=== PATIENT | female | born 1980 | race Hispanic/Latino ===

== ENCOUNTER 2018-09-19 11:54 | Emergency (ER) | payer SELFPAY ==
--- NOTE | 2018-09-19 12:48 | EKG ---
Test Date: 2018-09-19 Test Time: 12:24:50 Human Resources Department Supervisor: SHRADDHA MEASUREMENT RESULTS: Intervals: Rate: 76 [place]: 142 QRSD: 76 QT: 414 QTc: 465 [place]: P: 49 [place]: 142 QRS: 27 T: 74 INTERPRETIVE STATEMENTS: Normal sinus rhythm Normal ECG Compared to ECG 12/21/1998 21:00:00 T-wave abnormality no longer present Electronically Signed On 09-19-18 12:47:48 CDT by Jasiel Fuentes
[2018-09-19 12:55] LABS: Absolute Lymphocytes (CBC) 1.4 K/uL (0.7-4.9); Basophils % 0.5 % (0-1.3); Hematocrit 38.6 % (36.0-45.0); Lymphocytes % 25.5 % (15.3-44.8); Monocytes % 8.5 % (3.3-12.3); RBC Red Blood Cell Count 4.09 M/uL (3.86-4.86)
[2018-09-19 13:12] LABS: ALT/SGPT 15 U/L (12-78); AST/SGOT 13 U/L (15-37); Alkaline Phosphatase 48 U/L (45-117); BUN Blood Urea Nitrogen 14 mg/dL (7-18); Bicarbonate 28 mmol/L (21-32); Bilirubin Direct 0.2 mg/dL (0-0.2); Bilirubin Total 0.8 mg/dL (0.2-1.0); Glucose Level 61 mg/dL (74-106); Potassium 3.6 mmol/L (3.5-5.1); Protein, Total 7.1 g/dL (6.4-8.2); Sodium Level 145 mmol/L (136-145); Troponin (Emerg Dept Use Only) < 0.02 ng/mL (0.0-0.045)
--- NOTE | 2018-09-19 13:12 | RAD REPORT ---
EXAM DESCRIPTION: RAD - Chest Pa And Lat (2 Views) - 09/19/2018 1:05 pm CLINICAL HISTORY: Chest pain and pressure, shortness of breath COMPARISON: December 2013 TECHNIQUE: PA and lateral views of the chest were obtained. FINDINGS: The lungs are clear. Heart size is normal and central vasculature is within normal limit s. No pleural effusion or pneumothorax seen. No acute bony finding noted. No aortic abnormality. IMPRESSION: No acute cardiopulmonary process. No significant interval change.
--- NOTE | 2018-09-19 13:26 | ER ---
Nurse's Notes [facility] Name: Aura Crawford Age: 37 yrs Sex: Female : 1980 Arrival Date: 09/19/2018 Time: 11:57 Bed 14 Private MD: Diagnosis: Chest pain, unspecified Presentation: 09/19 11:59 Presenting complaint: Patient states: chest pressure and SOB that began 1 week ago. Pt aa5 states "It hasn't gotten any better or worse". Transition of care: patient was not received from another setting of care. Onset of symptoms was September 2018. Risk Assessment: Do you want to hurt yourself or someone else? Patient reports no desire to harm self or others. Initial Sepsis Screen: Does the patient meet any 2 criteria? No. Patient's initial sepsis screen is negative. Does the patient have a suspected source of infection? No. Patient's initial sepsis screen is negative. Care prior to arrival: None. 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 - Social history:: Smoking status: Patient/guardian denies using tobacco. - Ebola Screening: : No symptoms or risks identified at this time. Screenin:23 Abuse screen: Denies threats or abuse. Denies injuries from another. Nutritional aj screening: No deficits noted. Tuberculosis screening: No symptoms or risk factors identified. Fall Risk None identified. Assessment: 12:23 General: Appears in no apparent distress. comfortable, Behavior is calm, cooperative, aj appropriate for age. Pain: Complains of pain in chest Pain does not radiate. Pain began gradually. Cardiovascular: Reports chest pain, shortness of breath, Capillary refill < 3 seconds in bilateral fingers Patient's skin is warm and dry. Respiratory: Reports shortness of breath Airway is patent Respiratory effort is even, unlabored, Respiratory pattern is regular, symmetrical. Derm: Skin is intact, is healthy with good turgor, Skin is pink, warm \\T\\ dry. normal. 13:08 Reassessment: PT RETURNED FROM RADIOLOGY. bp Vital Signs: 12:00 BP 136 / 87; Pulse 82; Resp 16 S; Temp 98.1(O); Pulse Ox 100% on R/A; Weight 70.31 kg aa5 (R); Height 5 ft. 3 in. (160.02 cm) (R); Pain 4/10; 13:46 BP 138 / 78; Pulse 78; Resp 18; Pulse Ox 99% on R/A; aj 12:00 Body Mass Index 27.46 (70.31 kg, 160.02 cm) aa5 ED Course: 11:57 Patient arrived in ED. rg4 11:59 Arm band placed on. aa5 12:00 Triage completed. aa5 12:06 Urmila Feliz, RN is Primary Nurse. aj 12:10 David Gillis MD is Attending Physician. 12:23 Patient has correct armband on for positive identification. Placed in gown. Bed in low aj position. Side rails up X 1. Adult w/ patient. panel monitor on. Pulse ox on. NIBP on. 12:23 Inserted saline lock: 20 gauge in right antecubital area, using aseptic technique. aj Blood collected. Patient maintains SpO2 saturation greater than 95% on room air. 12:28 EKG done, by technical account manager. reviewed by David Gillis MD. tc 13:02 Patient moved to radiology via wheelchair. sw 13:02 X-ray completed. Patient tolerated procedure well. Patient moved back from radiology. sw 13:03 XRAY Chest Pa And Lat (2 Views) In Process Unspecified. EDMS 13:24 Carlito Dick MD is Referral Physician. gs 13:46 No provider procedures requiring assistance completed. IV discontinued, intact, aj bleeding controlled, No redness/swelling at site. Pressure dressing applied. Administered Medications: No medications were administered Outcome: 13:26 Discharge ordered by . gs 13:46 Discharged to home ambulatory. aj 13:46 Condition: good 13:46 Discharge instructions given to patient, Instructed on discharge instructions, follow up and referral plans. medication usage, Demonstrated understanding of instructions, follow-up care, medications, Prescriptions given X 1. 13:48 Patient left the ED. aj Signatures: Dispatcher [employer] EDMS Feliz Urmila, RN RN aj Clarissa Hussein, RN RN aa5 Tania Patricia, [facility] Hsu Rubi 4 David Gillis MD MD Levi Blackwood, RN RN bp
--- NOTE | 2018-09-19 13:26 | EDPHYS ---
Physician Documentation [facility] Name: Aura Crawford Age: 37 yrs Sex: Female : 1980 Arrival Date: 09/19/2018 Time: 11:57 Bed 14 Private MD: ED Physician David Gillis HPI: 09/19 18:52 This 37 yrs old Female presents to ER via Ambulatory with complaints of Chest gs Pain, Shortness Of Breath, Headache. 18:52 The patient or guardian reports chest pain that is located primarily in the anterior gs chest wall. The pain does not radiate. Associated signs and symptoms: Pertinent positives: shortness of breath, mild intermittent. The chest pain is described as dull. Duration: The patient or guardian reports a single episode, that is still ongoing, and unchanged. Modifying factors: The symptoms are alleviated by nothing. the symptoms are aggravated by nothing. Severity of pain: At its worst the pain was very mild in the emergency department the pain is unchanged. The patient has experienced similar episodes in the past, a few times. 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 - Social history:: Smoking status: Patient/guardian denies using tobacco. - Ebola Screening: : No symptoms or risks identified at this time. ROS: 18:52 All other systems are negative. gs Exam: 18:52 Head/Face: Normocephalic, atraumatic. Eyes: Pupils equal round and reactive to light, gs extra-ocular motions intact. Lids and lashes normal. Conjunctiva and sclera are non-icteric and not injected. Cornea within normal limits. Periorbital areas with no swelling, redness, or edema. ENT: Nares patent. No nasal discharge, no septal abnormalities noted. Tympanic membranes are normal and external auditory canals are clear. Oropharynx with no redness, swelling, or masses, exudates, or evidence of obstruction, uvula midline. Mucous membranes moist. Neck: Trachea midline, no thyromegaly or masses palpated, and no cervical lymphadenopathy. Supple, full range of motion without nuchal rigidity, or vertebral point tenderness. No Meningismus. Chest/axilla: Normal chest wall appearance and motion. Nontender with no deformity. No lesions are appreciated. Cardiovascular: Regular rate and rhythm with a normal S1 and S2. No gallops, murmurs, or rubs. Normal PMI, no JVD. No pulse deficits. Respiratory: Lungs have equal breath sounds bilaterally, clear to auscultation and percussion. No rales, rhonchi or wheezes noted. No increased work of breathing, no retractions or nasal flaring. Abdomen/GI: Soft, non-tender, with normal bowel sounds. No distension or tympany. No guarding or rebound. No evidence of tenderness throughout. Back: No spinal tenderness. No costovertebral tenderness. Full range of motion. Female : Normal external genitalia. Skin: Warm, dry with normal turgor. Normal color with no rashes, no lesions, and no evidence of cellulitis. MS/ Extremity: Pulses equal, no cyanosis. Neurovascular intact. Full, normal range of motion. Neuro: Awake and alert, GCS 15, oriented to person, place, time, and situation. Cranial nerves II-XII grossly intact. Motor strength 5/5 in all extremities. Sensory grossly intact. Cerebellar exam normal. Normal gait. 18:52 Constitutional: The patient appears alert, awake. 18:52 ECG was reviewed by the Attending Physician. Vital Signs: 12:00 BP 136 / 87; Pulse 82; Resp 16 S; Temp 98.1(O); Pulse Ox 100% on R/A; Weight 70.31 kg aa5 (R); Height 5 ft. 3 in. (160.02 cm) (R); Pain 4/10; 13:46 BP 138 / 78; Pulse 78; Resp 18; Pulse Ox 99% on R/A; aj 12:00 Body Mass Index 27.46 (70.31 kg, 160.02 cm) aa5 MDM: 12:40 Patient medically screened. 18:52 Differential diagnosis: coronary artery disease chest wall pain, gastroesophageal gs reflux disease (GERD), pleurisy. HEART Score: History: Slightly Suspicious (0), ECG: Non specific repolarization disturbance / LBTB / PM (1), Age: < or = 45 years (0), Risk Factors: No Risk Factors Known (0), Troponin: < or = 1 x Normal Limit (0). The patient's pulmonary embolism risk score was calculated as follows: No Risks (0 Pts). Data reviewed: vital signs, nurses notes. Counseling: I had a detailed discussion with the patient and/or guardian regarding: the historical points, exam findings, and any diagnostic results supporting the discharge/admit diagnosis, the presence of at least one elevated blood pressure reading (>120/80) during this emergency department visit, lab results, radiology results, the need for outpatient follow up. Special discussion: I have referred the patient to see his PCP for further evaluation of high blood pressure. 09/19 12:27 Order name: Urine Dipstick--Ancillary (enter results); Complete Time: 13:35 em1 09/19 12:27 Order name: Urine --Ancillary (enter results); Complete Time: 13:35 em1 09/19 12:41 Order name: Basic Metabolic Panel; Complete Time: 13:20 09/19 12:41 Order name: CBC with Diff; Complete Time: 13:20 09/19 12:41 Order name: LFT's; Complete Time: 13:20 09/19 12:41 Order name: Troponin (emerg Dept Use Only); Complete Time: 13:20 09/19 12:41 Order name: EKG; Complete Time: 12:41 09/19 12:41 Order name: Cardiac monitoring; Complete Time: 12:42 09/19 12:41 Order name: EKG - Nurse/Tech; Complete Time: 13:04 09/19 12:41 Order name: IV Saline Lock; Complete Time: 12:42 09/19 12:41 Order name: Labs collected and sent; Complete Time: 12:42 09/19 12:41 Order name: O2 Per Protocol; Complete Time: 12:42 09/19 12:41 Order name: O2 Sat Monitoring; Complete Time: 12:42 09/19 12:41 Order name: XRAY Chest Pa And Lat (2 Views); Complete Time: 13:20 gs EC:52 Rate is 76 beats/min. Rhythm is regular. NM interval is normal. QRS interval is normal. gs QT interval is normal. T waves are Flattened in leads I, aVL. Clinical impression: Abnormal EKG without significant change. Interpreted by me. Administered Medications: No medications were administered Disposition: 09/19/18 13:26 Discharged to Home. Impression: Chest pain, unspecified. - Condition is Stable. - Discharge Instructions: Nonspecific Chest Pain, Managing Your Hypertension. - Prescriptions for Pepcid 20 mg Oral Tablet - take 1 tablet by ORAL route every 12 hours for 10 days; 20 tablet. - Medication Reconciliation Form, Thank You Letter, Antibiotic Education, Prescription Opioid Use form. - Follow up: Carlito Dick MD; When: 2 - 3 days; Reason: Re-evaluation by your physician. Signatures: Dispatcher [employer] EDUrmila Hernández RN RN Clarissa Simons RN RN aa5 David Gillis MD MD gs Corrections: (The following items were deleted from the chart) 13:48 13:26 09/19/2018 13:26 Discharged to Home. Impression: Chest pain, unspecified. aj Condition is Stable. Forms are Medication Reconciliation Form, Thank You Letter, Antibiotic Education, Prescription Opioid Use. Follow up: Carlito Dick; When: 2 - 3 days; Reason: Re-evaluation by your physician. gs
[2018-09-19 13:34] LABS: Urine Blood NEGATIVE (NEG); Urine Glucose NEGATIVE (NEG); Urine Protein NEGATIVE (NEG); Urine Specific Gravity 1.025 (1.005-1.030)
[2018-09-19 14:31] VITALS: TEMP 98.1
[2018-09-19 14:32] VITALS: BP 138/78; O2SAT 99
== END 2018-09-19 13:48 | disposition home or self-care (01) ==
LOC: ER 11:54
DX: R07.9 Chest pain, unspecified (principal); R06.02 Shortness of breath
CPT/HCPCS: 36415; 71046; 80048; 80076; 81003; 81025; 84484; 85025; 93005; 99285

== ENCOUNTER 2020-05-14 06:29 | Day surgery (SDC) | payer OTHER, SELFPAY ==
[2020-05-10 14:54] LABS: Hematocrit 35.4 % (36.0-45.0); MPV 9.9 fL (7.6-11.3); RBC Red Blood Cell Count 3.89 M/uL (3.86-4.86)
[2020-05-10 14:55] LABS: Absolute Lymphocytes (CBC) 1.5 K/uL (0.7-4.9); Basophils % 0.7 % (0-1.3); Lymphocytes % 28.3 % (15.3-44.8)
[2020-05-10 15:29] LABS: Urine Appearance CLEAR; Urine Bilirubin NEGATIVE (NEG); Urine Blood NEGATIVE (NEG); Urine Color YELLOW; Urine Glucose NEGATIVE (NEG); Urine Protein NEGATIVE (NEG); Urine Specific Gravity 1.015 (1.005-1.030); Urine Urobilinogen 0.2 mg/dL (0.2-1.0); Urine pH 6.5 (5.0-7.0)
[2020-05-10 15:32] LABS: Urine Microscopic Reflex NO UMIC
[2020-05-14 06:52] LABS: Specific Gravity 1.025 (1.005-1.030)
[2020-05-14] MEDS ORDERED: BUPIVACAINE 0.25% PF 30 ML VIAL ONE (07:07)
[2020-05-14] MEDS ORDERED: SCOPOLAMINE HYDROBROMIDE PATCH TD ONE (07:22)
[2020-05-14] MEDS ORDERED: Ringers Lactate 1,000 ML IV ONE ×2 (07:23→08:43)
[2020-05-14] MEDS ORDERED: CEFAZOLIN SODIUM 1 GM/VIAL ONE (07:23)
[2020-05-14] MEDS ORDERED: METRONIDAZOLE 500mg IVPB 500 MG/100 ML BAG IV ONE (07:23)
[2020-05-14] MEDS ORDERED: propofoL 200 MG/20 ML VIAL IV ONE (07:25)
[2020-05-14] MEDS ORDERED: dexAMETHasone 10 MG/ML VIAL ONE (07:25)
[2020-05-14] MEDS ORDERED: MIDAZOLAM HCL 2 MG/2 ML INJ ONE (07:25)
[2020-05-14] MEDS ORDERED: FENTANYL CITR 250 MCG/5 ML ONE ×2 (07:26→10:00)
[2020-05-14] MEDS ORDERED: LIDOCAINE 1% MPF 2 ML AMPULE ONE (07:28)
[2020-05-14] MEDS ORDERED: ROCURONIUM 50 MG/5 ML VIAL IV ONE (07:28)
[2020-05-14] MEDS ORDERED: ONDANSETRON 4 MG/2 ML VIAL ONE ×2 (07:28→11:05)
[2020-05-14] MEDS ORDERED: GLYCOPYRROLATE 0.2 MG/ML SYR ONE (07:33)
[2020-05-14] MEDS ORDERED: Levofloxacin 750mg IV 750 MG/150 ML BAG IV ONE (07:49)
[2020-05-14] MEDS ORDERED: KETOROLAC 30 MG/ML INJ ONE (10:45)
[2020-05-14] MEDS ORDERED: PROMETHAZINE INJ 25 MG/ML AMP ONE (11:05)
--- NOTE | 2020-05-14 11:40 | OP ---
Surgeon: Tyler Amador MD Intraoperative consultation and procedure note. Dr. Lei was doing a diagnostic laparoscopy and removal of a cyst possible salpingo-oophorectomy on the patient with a pelvic mass. She had encounter a lot of scar tissue upon entering the abdomen and I was consulted. Two 5 mm trocars were placed after the initial 12 mm trocar was placed in the s upraumbilical region on the left side. One 5 mm trocar was placed on the right side. The ligature w as utilized to lyse all the adhesions in the peritoneal cavity. Bleeding was controlled with cautery as well as vascular clips on the mesenteric blood vessels. Care was taken to avoid injury to the sm all bowel or any bowel that was seen until all of the adhesions were taken down. The pelvis was visu alized, at which point Dr. Lei proceeded to evaluate the cyst and the ovary in the pelvis and pr oceeded with the appropriate surgical intervention for that purpose. My part was just lysing the adh esions and exposing the pelvis. So she was able to accomplish what she is doing in the pelvis, at wh ich point I left, and she completed the surgery. The patient was in stable condition at the time. /MODL Voice ID: [id number] Report ID: [id number]
[2020-05-14] MEDS: HYDROMORPHONE HCL 1 MG/ML INJ ONE ×2 (11:44→11:50)
[2020-05-14] MEDS: HYDROMORPHONE HCL 2 MG/ML inj ONE ×4 (11:56→12:15)
[2020-05-14] MEDS ORDERED: MEPERIDINE HCL 25 MG/ML SYR ONE (12:41)
[2020-05-14 12:54] VITALS: TEMP 97.3
[2020-05-14] MEDS ORDERED: IBUPROFEN 200 MG TAB PO ONE (12:55)
[2020-05-14 13:57] VITALS: BP 122/82; O2SAT 100
--- NOTE | 2020-06-22 23:17 | OP ---
Date of Procedure: 05/14/2020 Surgeon: Cindy Lei MD Medical Clerical Assistant: Dr. Amador or co-surgeon. Then, Melyssa Santillan was my electrician's assistant for my surgery. Preoperative Diagnoses: 1.Pelvic pain. 2.Right lower quadrant pain. 3.Intraabdominal pelvic mass. 4.Chronic parametritis and/or salpingitis. Postoperative Diagnoses: 1.Pelvic pain. 2.Left lower quadrant pain. 3.Left paraovarian cyst. 4.Right hydrosalpinx. 5.Bilateral ovarian adhesions and right tubal adhesions. 6.Extensive adhesions of the omentum and small bowel. Procedures Performed: 1.Laparoscopy with extensive lysis of adhesions, Dr. Amador. Please refer to his operative note. Th en, laparoscopy with bilateral ovariolysis. 2.Left paraovarian cystectomy. 3.Partial right salpingectomy. Specimens: Right tubal segment, left paraovarian cyst. Complications: None. Drains: None. Condition: Stable. Findings: The patient is COVID positive and she was given all the counseling as she was previously t ested and had recovered from COVID. She was still continuing to be positive. As this procedure was urgent, proceeded with this surgery. All COVID precautions universally were taken for the entire preoperative, postoperative, and intraope rative time for this patient. Indications: The patient is a 39-year-old with significant gynecological history. She had an ectopi c on the right ovary and the ectopic was removed and ovary reconstructed in 2003. Then, daniel patterson had a laparoscopy, left salpingectomy for left tubal ectopic in December of 2013. Then, s he had a laparotomy for severe peritonitis and sepsis from likely a pelvic infection in March, so anticipated significant amount of adhesions for this patient and when she presented with recen t onset pelvic pain to the clinically examination consistent with pelvic inflammatory disease, which probably includes the endometritis, salpingitis. There is a serious concern for this patient having significant peritoneal inflammation and sepsis just as she did in the past, so she was started on IV antibiotics. She had large masses on the left and right adnexa, one was 11.2 cm and the other was 5. 2 cm. The left one appeared to be thin-walled and tubal in origin and there were another 3.5 and 3 c m right adnexal masses that appeared to be simple cysts. So, a CT scan was ordered for this patient and CA-125. This appeared to be definitely more recent in onset in terms of her pain. All her opera tive notes from the past were all reviewed carefully. General surgery was on standby for this proced ure as there were anticipated adhesions that would be encountered and for the safety of the procedure , Dr. Amador was consulted. She was on Levaquin and Flagyl and was continuing this. Her pain had imp roved to a good extent, however, her masses were unresolved and so proceeded with the procedure. After informed consent was verified and she was given, she was already on her antibiotic. She was ta margaret back to the OR, consented for left ovarian cystectomy or left oophorectomy, right salpingectomy a nd cystectomy, lysis of adhesions. Description Of Procedure: After informed consent was re-verified, she was taken back to OR, placed i n a supine fashion on the operating table. General anesthesia was given. Abdomen, vulva, vagina, an d perineum prepped and draped in a sterile fashion. Gatica was placed to drain the bladder and diagno stic VCare introduced into the uterus and fixed in place. A 1 cm supraumbilical incision was made with a scalpel using the open laparoscopy technique. Fascia was incised, tagged with 0 Vicryl sutures. Peritoneal cavity entered bluntly. Once the S retractors were placed and Migel introduced, gas was insufflated appropriately. Once the 10 mm camera was robert halie, the adhesions were seen in the upper abdomen. The ports were placed in right lower quadrant, le ft lower quadrant, 5 ports, and suprapubic port gradually after taking the adhesions down. Please re [place] to Dr. Amador's note. Once the pelvis was well visualized, I took over the case and there was clearly a left paraovarian cy st. The tube was absent and the right tube was partial and had a partial hydrosalpinx, which could b e a hematosalpinx or a pyosalpinx. This was well visualized. Ovaries were densely adhered to the po sterior broad ligament and lateral alicea. Clearly, no evidence of any endometriosis was noted here, most likely this is acute inflammation and remaining chronic inflammation as well. So, bilateral ova filipe adhesions were taken down. The pelvic brim was visualized on both sides. Both ovaries were tory ntified. The uterus was identified. There were several adhesions of the uterus to the anterior abdo mars wall and to the bowel wall. These were taken down systematically. Once all these were freed, anterior cul-de-sac was unremarkable. Then posteriorly, dissection was performed after visualizing t he ureter from the pelvic brim to the area of the adhesions on the left side. The ovary was first pi cked up and visualized with the camera, then came back to the right side and did the same. Then on t he left side, the broad ligament was opened up by opening the peritoneum in the sidewall and staying lateral to the paraovarian cyst. This was dissected all the way and passed down to the round ligamen t and then coming across the cyst. The cyst was peeled away medially. Then, this was taken graduall y and divided and find the infundibulopelvic ligament preserving this. The cyst was excised and plac ed in the anterior cul-de-sac. Once this was done, the ovarian adhesions were well visualized and th dami were taken down systematically, so that the ovary could be free and not cause as much pain. Once all this was taken down, the right tubal segment with hydrosalpinx was excised and placed in the ant erior cul-de-sac, and the adhesions of the right ovary were also taken down and the right ovary was r eleased. Then, thorough irrigation and suction was performed in the pelvic cavity with copious gómez l saline. There was no evidence of any purulent material. The ovaries were both saved and the uteru s. So, once this was done, all the areas of dissection were checked again and there was no evidence of any active bleeding. There was good hemostasis. After irrigating the areas of the small bowel an d omentum were taken down as well and hemostasis was ensured and no injury was ensured. Then, the ga s was desufflated. Trocars were removed under direct vision. Umbilical trocar was also removed afte r desufflating completely. The skin and fascia were injected with 0.25% Marcaine at entry and exit. Before removing the trocars, the EndoCatch bag was placed in all the cyst and tubal remnant were all placed inside the bag. The bag was closed. Then, all the trocars were removed. Once the Migel wa s removed, the trocar along with bag were removed decompressing the cyst. Once all this was removed, the fascia at the umbilicus was closed with the tagged 0 Vicryl sutures tied to each other, simple 0 Vicryl stitch in the subcutaneous tissue, and also other all incisions closed with the help of inter rupted 4-0 Vicryl sutures. Bleeding was minimal. She tolerated the procedure well. She was recover ed from anesthesia and taken to PACU in stable condition. She will follow up with me in 1 week. ABRAHAN/PATRICK Voice ID: [id number] Report ID: [id number]
== END 2020-05-14 13:35 | disposition home or self-care (01) ==
LOC: OR 06:29
PROVIDERS: ATTEND Obstetrics & Gynecology
PROC: 0UB14ZZ Excision of Left Ovary, Percutaneous Endoscopic Approach (ICD-10-PCS; 2020-05-14)
PROC: 0UT54ZZ Resection of Right Fallopian Tube, Percutaneous Endoscopic Approach (ICD-10-PCS; 2020-05-14)
PROC: 0DNW4ZZ Release Peritoneum, Percutaneous Endoscopic Approach (ICD-10-PCS; principal; 2020-05-14 07:30)
DX: N83.202 Unspecified ovarian cyst, left side (principal); R10.2 Pelvic and perineal pain; N73.1 Chronic parametritis and pelvic cellulitis; R10.31 Right lower quadrant pain; U07.1 COVID-19
CPT/HCPCS: 49329; 58662; 58661; 85025; 36415; 86900; 86850; 81025; 86901; 88302; 88305; 81003; U0002; J2704; J2250; J1170 ×2; J3010 ×2; J1100; J2175; J2001; J7120 ×2; J2405 ×2; J0690; J2550

== ENCOUNTER 2020-05-18 15:16 | Emergency (ER) | payer OTHER, SELFPAY ==
--- OUTSIDE RECORDS SUMMARY | 2020-05-18 15:19 | XMS REPORT | Continuity of Care Document ---
:1980 Author Organization [facility] t Address [address] [place] [address] Care Team Providers Name Role Phone Shalom Mario DDS Attending Clinician Doctor Unassigned, Name Attending Clinician Unavailable Problems This patient has no known problems. Allergies, Adverse Reactions, Alerts This patient has no known allergies or adverse reactions. Medications This patient has no known medications. Procedures This patient has no known procedures. Encounters Start End Encounter Admission Attending Care Care Encounter Source Date/Time Date/Time Type Type Clinicians Facility Department ID 2020-03-13 2020-03-13 Letter SASKIA Mario [id number] 00:00:00 00:00:00 (Out) Shalom [facility] [id number] [facility] [id number] 2020-03-12 2020-03-12 Telephone NEGRITA Mario [id number] 00:00:00 00:00:00 Shalom [facility] [id number] [facility] [id number] 2020-02-27 2020-02-27 Office NEGRITA Mario [id number] 10:03:54 10:46:44 Visit Shalom [facility] [id number] [facility] [id number] 2020-02-27 2020-02-27 Orders Doctor CRAFT [id number] 00:00:00 00:00:00 Only Unassigned, MICHAEL [id number] [place] [facility] [id number] Results This patient has no known results.
[2020-05-18] MEDS ORDERED: MORPHINE 4 MG/ML SYR ONE (16:32)
[2020-05-18] MEDS ORDERED: NA CHLORIDE 0.9% 1,000 ML ONE ×2 (16:32→19:25)
[2020-05-18] MEDS ORDERED: ONDANSETRON 4 MG/2 ML VIAL ONE (16:32)
[2020-05-18 16:51] LABS: Basophils % 0.4 % (0-1.3); Hematocrit 34.2 % (36.0-45.0); Lymphocytes % 11.4 % (15.3-44.8); MPV 9.7 fL (7.6-11.3); RBC Red Blood Cell Count 3.79 M/uL (3.86-4.86)
[2020-05-18 17:03] LABS: Albumin 3.2 g/dL (3.4-5.0); Bilirubin Direct 0.1 mg/dL (0-0.2); Bilirubin Total 0.5 mg/dL (0.2-1.0); Protein, Total 6.3 g/dL (6.4-8.2)
--- NOTE | 2020-05-18 17:22 | RAD REPORT ---
EXAM DESCRIPTION: CT - Abdomen Pelvis W Contrast - 05/18/2020 5:00 pm CLINICAL HISTORY: ABD PAIN, reports ovarian cyst surgery 4 days earlier now with increasing pain, na usea COMPARISON: Abdomen Pelvis W Contrast dated 05/08/2020 TECHNIQUE: Biphasic, helical CT imaging of the abdomen and pelvis was performed following 100 ml non -ionic IV contrast. Oral contrast was given. All CT scans are performed using dose optimization technique as appropriate and may include automated exposure control or mA/KV adjustment according to patient size. FINDINGS: Trace pleural fluid in left base. Trace atelectasis at each base. No pericardial effusion. The liver, spleen, and pancreas show no suspicious findings. Gallbladder and biliary tree are also wi thout suspicious finding. Symmetric renal function is seen with no hydronephrosis or suspicious renal mass. No pyelonephritis o r acute parenchymal process. Well filled urinary bladder shows no suspicious findings. No adrenal abn ormalities. No uterine abnormality seen. Right-sided hydrosalpinx is present. There is a 2.4 centimeter cystic ar ea in the region of the infundibulum. This could be dilated infundibulum or could be a right ovarian cyst. Left-sided hydrosalpinx again noted. A 3.3 centimeter cystic mass in the left adnexa may be dil ated infundibulum or an ovarian cyst. The larger 12 centimeter cystic mass is no longer present. The surgical procedure performed in findings found at that surgery are unknown. Small amount of fluid is present in the cul de sac. A contain a small amount of blood. This may be postsurgical and is not nec essarily an indicator of an acute bleeding process. Overall quantity of fluid is small and well withi n limits for recent surgery. Moderate stool volume present throughout the colon. No dilated large or small bowel. No gastric abnor mality. Small amount of free air is present in the nondependent portion of the pelvis and in the sub cutaneous fatty tissues. Again, this is well within normal for recent surgery. No hernia, mass or bu lky lymphadenopathy. No suspicious bony findings. IMPRESSION: The large 12 centimeter cystic mass in the left adnexae and pelvis detailed May 08 is no longer present. The patient has bilateral hydrosalpinx with 2.4 centimeter right-side and 3.3 centimeter left-sided c ystic components which could be ovarian cysts or possibly dilated infundibulum portion of the tube. Free air, free fluid and stranding in the pelvis and subcutaneous fat of the lower pelvis are all wel l within normal limits for the recent surgery. No abscess suspected. No emergent finding noted.
--- NOTE | 2020-05-18 18:52 | EDPHYS ---
Physician Documentation [facility] Name: Aura Crawford Age: 39 yrs Sex: Female : 1980 Arrival Date: 05/18/2020 Time: 15:17 Bed 5 Private MD: CHRISTIANA Physician Dayo Jurado HPI: 05/18 16:13 This 39 yrs old Female presents to ER via Wheelchair with complaints of Post pm1 Surgical Pain, Abdominal Pain. 16:13 The patient presents with abdominal pain in the epigastric area. Onset: The pm1 symptoms/episode began/occurred today. The symptoms do not radiate. Associated signs and symptoms: Pertinent positives: dizziness, Pertinent negatives: nausea, vomiting, and diarrhea, chest pain, constipation, dysuria, fever, shortness of breath. The symptoms are described as crampy. Modifying factors: The symptoms are alleviated by nothing, the symptoms are aggravated by nothing. Severity of pain: in the emergency department the pain has resolved. The patient has been recently seen by a physician: large left ovarian cyst removed on Wednesday by Dr. Lei. 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 - Social history:: Smoking status: Patient denies any tobacco usage or history of. ROS: 16:13 Constitutional: Negative for fever, chills, and weight loss, Cardiovascular: Negative pm1 for chest pain, palpitations, and edema, Respiratory: Negative for shortness of breath, cough, wheezing, and pleuritic chest pain. 16:13 Back: Negative for injury and pain, MS/Extremity: Negative for injury and deformity, Skin: Negative for injury, rash, and discoloration. 16:13 Abdomen/GI: Positive for abdominal pain, nausea, Negative for vomiting, diarrhea, constipation. 16:13 Neuro: Positive for dizziness, Negative for headache. Exam: 16:13 Constitutional: This is a well developed, well nourished patient who is awake, alert, pm1 and in no acute distress. Head/Face: Normocephalic, atraumatic. 16:13 Back: No spinal tenderness. No costovertebral tenderness. Full range of motion. Skin: Warm, dry with normal turgor. Normal color with no rashes, no lesions, and no evidence of cellulitis. MS/ Extremity: Pulses equal, no cyanosis. Neurovascular intact. Full, normal range of motion. 16:13 Cardiovascular: Exam negative for acute changes, Rate: normal, Rhythm: regular, Pulses: no pulse deficits are appreciated. 16:13 Respiratory: Exam negative for acute changes, respiratory distress, shortness of breath. 16:13 Abdomen/GI: Inspection: abdomen appears normal, Palpation: soft, in all quadrants, mild abdominal tenderness, in the epigastric area and right lower quadrant. 16:13 Neuro: Exam negative for acute changes, Orientation: is normal, Mentation: is normal, Motor: is normal, moves all fours. Vital Signs: 15:45 BP 143 / 88; Pulse 68; Resp 16; Temp 98.4; Pulse Ox 100% on R/A; Weight 68.04 kg; iw Height 5 ft. 2 in. (157.48 cm); Pain 7/10; 19:00 BP 130 / 87; Pulse 70; Resp 17; Pulse Ox 99% ; ea 15:45 Body Mass Index 27.44 (68.04 kg, 157.48 cm) iw MDM: 16:02 Patient medically screened. pm1 18:10 Counseling: I had a detailed discussion with the patient and/or guardian regarding: the pm1 historical points, exam findings, and any diagnostic results supporting the discharge/admit diagnosis, lab results, radiology results. 18:18 Data reviewed: vital signs. Data interpreted: Pulse oximetry: on room air is 100 %. pm1 Interpretation: normal. 18:18 Physician consultation: PA for Dr. Quique Gray was called at 18:19, was contacted pm1 at 18:19, regarding patient's condition, would like medications started, discharge the patient home with colace and miralax. 18:49 Counseling: I had a detailed discussion with the patient and/or guardian regarding: the pm1 need for outpatient follow up, Dr. Lei, to return to the emergency department if symptoms worsen or persist or if there are any questions or concerns that arise at home. 18:56 ED course: Patient would like to use pain medications that is not as strong as norco. pm1 Will prescribe her tylenol #3. 05/18 16:07 Order name: Basic Metabolic Panel; Complete Time: 17:18 pm1 05/18 16:07 Order name: CBC with Diff; Complete Time: 17:18 pm1 05/18 16:07 Order name: Hepatic Function; Complete Time: 17:18 pm1 05/18 16:07 Order name: Lipase; Complete Time: 17:18 pm1 05/18 16:55 Order name: CREATININE WHOLE BLOOD EDMS 05/18 16:55 Order name: CREATININE WHOLE BLOOD; Complete Time: 17:18 EDMS 05/18 16:07 Order name: IV Saline Lock; Complete Time: 16:21 pm1 05/18 16:07 Order name: Labs collected and sent; Complete Time: 16:21 pm1 05/18 16:07 Order name: CT Abd/Pelvis - IV Contrast Only; Complete Time: 17:24 pm1 Administered Medications: 16:40 Drug: NS 0.9% 1000 ml Route: IV; Rate: 1000 ml; Site: left antecubital; jd3 19:15 Follow up: Response: No adverse reaction; IV Status: Completed infusion; IV Intake: ea 1000ml 16:40 Drug: morphine 4 mg Route: IVP; Site: left antecubital; jd3 19:15 Follow up: Response: No adverse reaction ea 16:40 Drug: Zofran (Ondansetron) 4 mg Route: IVP; Site: right wrist; jd3 19:15 Follow up: Response: No adverse reaction ea 19:15 Not Given (Patient Refused): NS 0.9% 1000 ml IV at 1000 ml once ea Disposition: 05/19 09:07 Co-signature as Attending Physician, Dayo Jurado MD I agree with the assessment and aditi plan of care. Disposition: 05/18/20 18:50 Discharged to Home. Impression: Unspecified abdominal pain - post surgical pain, Constipation, unspecified. - Condition is Stable. - Discharge Instructions: Abdominal Pain, Adult, Constipation, Adult. - Prescriptions for Colace 100 mg Oral Tablet - take 1 tablet by ORAL route every 12 hours; 14 tablet. Miralax 17 gram/dose Oral - take 1 packet by ORAL route once daily As needed dilute powder in 8 ounces of water or juice; 7 packet. Tylenol- Codeine #3 300-30 mg Oral Tablet - take 2 tablets by ORAL route every 4-6 hours As needed; 20 tablet. - Medication Reconciliation Form, Thank You Letter, Antibiotic Education, Prescription Opioid Use form. - Follow up: Emergency Department; When: As needed; Reason: Worsening of condition. Follow up: Cindy Lei MD; When: 2 - 3 days; Reason: Recheck today's complaints, Continuance of care, Re-evaluation by your physician. - Problem is new. - Symptoms have improved. Signatures: Dispatcher [employer] EDDayo Sosa MD MD cha Williams, Irene RN Tate Duarte NP [employer] SE[employer]ING [employer]OCIATE pm1 Tracy Schaefer RN RN ea Davies, Jonathon, RN RN jd3 Corrections: (The following items were deleted from the chart) 05/18 19:18 18:50 05/18/2020 18:50 Discharged to Home. Impression: Unspecified abdominal pain - ea post surgical pain; Constipation, unspecified. Condition is Stable. Forms are Medication Reconciliation Form, Thank You Letter, Antibiotic Education, Prescription Opioid Use. Follow up: Emergency Department; When: As needed; Reason: Worsening of condition. Follow up: Cindy Lei; When: 2 - 3 days; Reason: Recheck today's complaints, Continuance of care, Re-evaluation by your physician. Problem is new. Symptoms have improved. pm1
--- NOTE | 2020-05-18 18:52 | ER ---
Nurse's Notes [facility] Name: Aura Crawford Age: 39 yrs Sex: Female : 1980 Arrival Date: 05/18/2020 Time: 15:17 Bed 5 Private MD: Diagnosis: Unspecified abdominal pain-post surgical pain;Constipation, unspecified Presentation: 05/18 15:45 Chief complaint: Patient states: had surgery to remove ovarian cysts with Quique Smith iw on Wednesday , had been having increases abd pain and today she got dizzy and nauseous , denies vaginal bleeding. Coronavirus screen: At this time, the client does not indicate any symptoms associated with coronavirus-19. Ebola Screen: Patient negative for fever greater than or equal to 101.5 degrees Fahrenheit, and additional compatible Ebola Virus Disease symptoms Patient denies exposure to infectious person. Patient denies travel to an Ebola-affected area in the 21 days before illness onset. No symptoms or risks identified at this time. Initial Sepsis Screen: Does the patient meet any 2 criteria? No. Patient's initial sepsis screen is negative. Does the patient have a suspected source of infection? No. Patient's initial sepsis screen is negative. Risk Assessment: Do you want to hurt yourself or someone else? Patient reports no desire to harm self or others. Onset of symptoms was May 18, 2020. 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 - Social history:: Smoking status: Patient denies any tobacco usage or history of. Screenin:00 Abuse screen: Denies threats or abuse. Nutritional screening: No deficits noted. ea Tuberculosis screening: No symptoms or risk factors identified. 19:00 Fall Risk None identified. ea Assessment: 16:15 General: Appears in no apparent distress. uncomfortable, Behavior is calm, cooperative, jd3 appropriate for age. Pain: Complains of pain in epigastric area Quality of pain is described as pressure, sharp, tender. Neuro: Level of Consciousness is awake, alert, obeys commands, Oriented to person, place, time, situation. Cardiovascular: Denies chest pain, Capillary refill < 3 seconds Patient's skin is warm and dry. Respiratory: Airway is patent Respiratory effort is even, unlabored, Respiratory pattern is regular, symmetrical, Denies cough, shortness of breath. GI: Abdomen is round non-distended, Abd is soft X 4 quads Abdomen is tender to palpation in right upper quadrant and left upper quadrant Reports upper abdominal pain, nausea. : No signs and/or symptoms were reported regarding the genitourinary system. EENT: No signs and/or symptoms were reported regarding the EENT system. Derm: Skin is intact, Skin is dry, Skin is normal, Skin temperature is warm. Musculoskeletal: Circulation, motion, and sensation intact. Range of motion: intact in all extremities. 17:06 Reassessment: Patient appears in no apparent distress at this time. No changes from jd3 previously documented assessment. Patient and/or family updated on plan of care and expected duration. Pain level reassessed. Patient is alert, oriented x 3, equal unlabored respirations, skin warm/dry/pink. 18:20 Reassessment: Patient appears in no apparent distress at this time. Patient and/or jd3 family updated on plan of care and expected duration. Pain level reassessed. Patient is alert, oriented x 3, equal unlabored respirations, skin warm/dry/pink. 19:16 Reassessment: Patient and/or family updated on plan of care and expected duration. Pain ea level reassessed. Patient is alert, oriented x 3, equal unlabored respirations, skin warm/dry/pink. Discharge instruction given to patient verbalized the understanding of instruction. Pt left ED ambulatory tolerating well. Vital Signs: 15:45 BP 143 / 88; Pulse 68; Resp 16; Temp 98.4; Pulse Ox 100% on R/A; Weight 68.04 kg; iw Height 5 ft. 2 in. (157.48 cm); Pain 7/10; 19:00 BP 130 / 87; Pulse 70; Resp 17; Pulse Ox 99% ; ea 15:45 Body Mass Index 27.44 (68.04 kg, 157.48 cm) ED Course: 15:17 Patient arrived in ED. am2 15:47 Triage completed. iw 15:49 Arm band placed on. iw 16:02 Tate Villa NP is PHCP. pm1 16:02 Dayo Jurado MD is Attending Physician. pm1 16:12 Hector Keating RN is Primary Nurse. jd3 16:20 Inserted saline lock: 20 gauge in left antecubital area, using aseptic technique. Blood mt collected. 17:00 CT Abd/Pelvis - IV Contrast Only In Process Unspecified. EDMS 18:50 Cindy Lei MD is Referral Physician. pm1 19:00 Patient has correct armband on for positive identification. ea 19:00 No provider procedures requiring assistance completed. jd3 19:15 IV discontinued, intact, bleeding controlled, No redness/swelling at site. Pressure ea dressing applied. Administered Medications: 16:40 Drug: NS 0.9% 1000 ml Route: IV; Rate: 1000 ml; Site: left antecubital; jd3 19:15 Follow up: Response: No adverse reaction; IV Status: Completed infusion; IV Intake: ea 1000ml 16:40 Drug: morphine 4 mg Route: IVP; Site: left antecubital; jd3 19:15 Follow up: Response: No adverse reaction ea 16:40 Drug: Zofran (Ondansetron) 4 mg Route: IVP; Site: right wrist; jd3 19:15 Follow up: Response: No adverse reaction ea 19:15 Not Given (Patient Refused): NS 0.9% 1000 ml IV at 1000 ml once ea Intake: 19:15 IV: 1000ml; Total: 1000ml. ea Outcome: 18:50 Discharge ordered by . pm1 19:17 Discharged to home ambulatory, with family. ea 19:17 Condition: stable 19:17 Discharge instructions given to patient, Instructed on discharge instructions, follow up and referral plans. medication usage, Demonstrated understanding of instructions, follow-up care, medications, Prescriptions given X 3. 19:18 Patient left the ED. ea Signatures: Dispatcher [employer] EDMS Melissa Sanabria RN RN Tate Villa, LETICIA [employer]BSERVER [employer]PECTING pm1 Urmila Jordan amSari Rueda mt, Elena, RN RN ea KeatingHector schaeffer RN RN jd3
[2020-05-18 19:34] VITALS: TEMP 98.4
[2020-05-18 19:35] VITALS: BP 130/87; O2SAT 99
== END 2020-05-18 19:18 | disposition home or self-care (01) ==
LOC: ER 15:16
DX: G89.18 Other acute postprocedural pain (principal); K59.00 Constipation, unspecified; Z98.890 Other specified postprocedural states; Z98.82 Breast implant status
CPT/HCPCS: 85025; 80048; 36415; 82565; 80076; 83690; 74177; 99284; Q9967; J7030 ×2; J2405

== ENCOUNTER 2021-07-22 22:50 | Emergency (ER) | payer OTHER, SELFPAY ==
--- OUTSIDE RECORDS SUMMARY | 2021-07-22 23:00 | XMS REPORT | Continuity of Care Document ---
:1980 Author Organization [facility] t Address [address] [place] [address] Care Team Providers Name Role Phone Pcp, Patient Does Not Have A Primary Care Physician [phone] Deb MARIO Attending Clinician Unavailable Deb Mario DDS Attending Clinician Lab, Fam Pob I Attending Clinician Unavailable Lynne Conley Attending Clinician YOMAIRA A Attending Clinician Unavailable Anene INTERMEDIATE DESIGNER Attending Clinician ANENE Attending Clinician Unavailable Doctor Unassigned, Name Attending Clinician Unavailable Only, Test Attending Clinician Unavailable Abraham FARIAS Attending Clinician Unavailable Theodore CALDERA, K Attending Clinician Only, Test Attending Clinician Unavailable Only, Test Attending Clinician Unavailable Unknown Attending Clinician Unavailable UNKNOWN Attending Clinician Unavailable Vinayak FARIAS Attending Clinician Unavailable Deb MARIO Admitting Clinician Unavailable Deb Mario DDS Admitting Clinician Payers Payer Name Policy Type Policy Number Effective Date Expiration Date S [facility] [place] [id number] 2019 GENERIC 00:00:00 Problems Condition Condition Condition Status Onset Resolution Last Treating Co mments Source Name Details Category Date Date Treatment Clinician Date Closed Closed Disease Active 2019-03 NPI:183 fracture fracture 12 [id number] 1 of left of left 00:00: mandibular mandibular 00 angle, angle, initial initial encounter encounter Pleural Pleural Disease Active NPI:183 effusion effusion [id number] 1 00:00: 00 SOB SOB Disease Active NPI:183 (shortness (shortness 2-12 13 27338 of breath) of breath) 00:00: 00 Ascites Ascites Disease Active NPI:183 2-04 [id number] 00:00: 00 Sepsis Sepsis Disease Active NPI:183 - [id number] 00:00: 00 Allergies, Adverse Reactions, Alerts Allergy Allergy Status Severity Reaction(s) Onset Inactive Treating Comm ents Source Name Type Date Date Clinician NO KNOWN Drug Active NPI:183 ALLERGIE Class [id number] S Social History Social Habit Start Date Stop Date Quantity Comments Source Exposure to Not sure NPI:[id number] 1 SARS-CoV-2 (event) History SDOH NPI:[id number] Alcohol Frequency History SDOH NPI:[id number] 81 Alcohol Std Drinks History SDOH NPI:[id number] 81 Alcohol Binge Alcohol intake 2020-02-27 2020-02-27 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 Clinician (SIG) Name Name HYDROmorpho 2019-03 Yes .2mg 0.2 mg, NPI :183 ne 1-20 Slow IV [id number] (DILAUDID) 15:00: Push, injection 25 Q5MIN PRN, 0.2 mg 10 doses, Starting Wed02/02/20 at 0900, Until Discontinu ed, Routine, Pain (scale 7-10), PACU
Us e approved by (Faculty): PACU USE -ANESTHESI A SERVICE-HY DROMORPHON E INJECTIONS ondansetron 2019-03 Yes 4mg 4 mg, Slow NPI:183 (ZOFRAN 1-20 IV Push, [id number] (PF)) 15:00: PRN, 1 injection 4 25 dose, mg Starting Wed02/02/20 at 0900, Until Discontinu ed, Routine, Nausea and Vomiting (N/V), PACU FENTanyl PF 2019-03 Yes 25ug 25 mcg, NPI :183 (SUBLIMAZE 1-20 Slow IV [id number] 1 (PF)) 15:00: Push, injection 24 Q5MIN PRN, 25 mcg 4 doses, Starting Wed02/02/20 at 0900, Until Discontinu ed, Routine, Pain (scale 4-6), PACU morpHINE 2019-03 Yes 2mg 2 mg, Slow NPI :183 injection 2 -20 IV Push, 1318 781 mg 15:00: Q3HPRN, 12 Starting Wed02/02/20 at 0900, Until Discontinu ed, Routine, Pain (scale 7-10), DSU Recovery HYDROcodone 2019-03 Yes 5mg 5 mg, NPI:1 83 -acetaminop 04-03 Oral, [id number] (HYCET) 15:00: Q4HPRN, 7.5-325 12 Starting mg/15 mL Fri solution 5 02/02/20 mg at 0900, Until Discontinu ed, Routine, Pain (scale 4-6), DSU Recovery ibuprofen 2019-03 Yes 200mg 200 mg, NPI: 183 (ADVIL 04-03 Oral, [id number] CHILDREN'S) 15:00: Q6HPRN, 100 mg/5 mL 12 Starting oral Fri suspension 02/02/20 200 mg at 0900, Until Discontinu ed, Routine, Pain (scale 1-3), DSU Recovery sugammadex 2019-03 2020- No ONCE INTRA NPI:183 (BRIDION) 04-03 PROCEDURE, [id number] injection 14:55: 15:16 Starting 00 :48 Wed02/02/20 at 0855, Until Wed02/02/20 at 0916, Routine, Intra-op HYDROmorphO 2019-03- No Slow IV 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 I:183 ne 04-03 Push, ONCE [id number] (DILAUDID) 13:57: 15:16 INTRA injection 00 :48 PROCEDURE, Starting Wed02/02/20 at 0757, Until Wed02/02/20 at 0916, Routine, Intra-op ondansetron 2020-1 2020- No Slow IV AIRCRAFT INSPECTOR I:183 (ZOFRAN 04-03 Push, ONCE [id number] 81 (PF)) 13:49: 15:16 INTRA injection 00 :48 PROCEDURE, Starting Wed02/02/20 at 0749, Until Wed02/02/20 at 0916, Routine, Intra-op acetaminoph 2019-03- No Administer NPI:183 en ADULT 04-03 over 15 [id number] (OFIRMEV) 13:46: 15:16 Minutes, injection 00 :48 ONCE INTRA PROCEDURE, Starting Wed02/02/20 at 0746, Until Wed02/02/20 at 0916, Routine, Intra-op lidocaine 2019- Yes PRN, NPI:183 2% - 04-03 Starting [id number] epinephrine 13:41: Fri 1:100,000 00 02/02/20 syringe at 0741, Until Discontinu ed, Routine, Intra-op FENTanyl PF 2019-03 2020- No Intravenou NPI:183 (SUBLIMAZE 04-03 s, ONCE [id number] 81 (PF)) 13:30: 15:16 INTRA injection 00 :48 PROCEDURE, Starting Wed02/02/20 at 0730, Until Wed02/02/20 at 0916, Routine, Intra-op rocuronium 2019-03 2020- No IV Push, AIRCRAFT INSPECTOR I:183 (ZEMURON) 04-03 ONCE INTRA 131 [id number] injection 13:21: 15:16 PROCEDURE, 00 :48 Starting 02/02/20 at 0721, Until Wed02/02/20 at 0916, Routine, Intra-op propofoL IV 2019-03- No ONCE INTRA NPI:183 infusion 04-03 PROCEDURE, [id number] 781 13:20: 15:16 Starting 00 :48 02/02/20 at 0720, Until Wed02/02/20 at 0916, Routine, Intra-op ceFAZolin 2019-03 2020- No Slow IV NPI: 183 (ANCEF) 04-03 Push, ONCE [id number] 81 injection 13:20: 15:16 INTRA 00 :48 PROCEDURE, Starting 02/02/20 at 0720, Until Wed02/02/20 at 0916, RAVINDER, Intra-op lidocaine 2019-03 2020- No ONCE INTRA N PI:183 1% 04-03 PROCEDURE, [id number] (XYLOCAINE) 13:19: 15:16 Starting 100 mg/10 00 :48 Fri mL (1 %) 02/02/20 injection at 0719, Until Wed02/02/20 at 0916, Routine, Intra-op midazolam 2019-03- No IV Push, NPI :183 (VERSED) 04-03 ONCE INTRA 1318 781 injection 13:11: 15:16 PROCEDURE, 00 :48 Starting 02/02/20 at 0711, Until Wed02/02/20 at 0916, Routine, Intra-op lactated 2019-03- No 1000mL at 42 NPI:1 83 ringers IV 04-03 11-20 mL/hr, [id number] 1 infusion 11:45: 13:10 1,000 mL, 1,000 mL 00 :00 IV Infusion, ONCE, 1 dose, Wed02/02/20 at 0545, Routine, DSU Pre-op chlorhexidi 2019-03 Yes [id number] 15mL Swish and NPI:183 ne 0.12 % 1-20 673069 spit out 1318 781 mouthwash 00:00: 15 mL 2 00 (two) times daily. chlorhexidi 2019-03 Yes [id number] 15mL Swish and NPI:183 ne 0.12 % 1-20 568765 spit out 1318 781 mouthwash 00:00: 15 mL 2 00 (two) times daily. chlorhexidi 2019-03 Yes [id number] 15mL Swish and NPI:183 ne 0.12 % 1-20 754989 spit out 1318 781 mouthwash 00:00: 15 mL 2 00 (two) times daily. chlorhexidi 2019-03 Yes [id number] 15mL Swish and NPI:183 ne 0.12 % 1-20 041524 spit out 1318 781 mouthwash 00:00: 15 mL 2 00 (two) times daily. chlorhexidi 2019-03 Yes [id number] 15mL Swish and NPI:183 ne 0.12 % 1-20 780225 spit out 1318 781 mouthwash 00:00: 15 mL 2 00 (two) times daily. chlorhexidi 2019-03 Yes [id number] 15mL Swish and NPI:183 ne 0.12 % 1-20 186536 spit out 1318 781 mouthwash 00:00: 15 mL 2 00 (two) times daily. chlorhexidi 2019-03 Yes [id number] 15mL Swish and NPI:183 ne 0.12 % 1-20 202096 spit out 1318 781 mouthwash 00:00: 15 mL 2 00 (two) times daily. chlorhexidi 2019-03 Yes [id number] 15mL Swish and NPI:183 ne 0.12 % 1-20 171361 spit out 1318 781 mouthwash 00:00: 15 mL 2 00 (two) times daily. chlorhexidi 2019-03 Yes [id number] 15mL Swish and NPI:183 ne 0.12 % 1-20 048960 spit out 1318 781 mouthwash 00:00: 15 mL 2 00 (two) times daily. chlorhexidi 2019-03 Yes [id number] 15mL Swish and NPI:183 ne 0.12 % 1-20 512996 spit out 1318 781 mouthwash 00:00: 15 mL 2 00 (two) times daily. chlorhexidi 2019-03 Yes [id number] 15mL Swish and NPI:183 ne 0.12 % 1-20 133076 spit out 1318 781 mouthwash 00:00: 15 mL 2 00 (two) times daily. chlorhexidi 2019-03 Yes [id number] 15mL Swish and NPI:183 ne 0.12 % 1-20 821605 spit out 1318 781 mouthwash 00:00: 15 mL 2 00 (two) times daily. chlorhexidi 2019-03 Yes [id number] 15mL Swish and NPI:183 ne 0.12 % 1-20 322767 spit out 1318 781 mouthwash 00:00: 15 mL 2 00 (two) times daily. chlorhexidi 2019-03 Yes [id number] 15mL Swish and NPI:183 ne 0.12 % 1-20 938443 spit out 1318 781 mouthwash 00:00: 15 mL 2 00 (two) times daily. chlorhexidi 2019-03 Yes [id number] 15mL Swish and NPI:183 ne 0.12 % 1-20 642673 spit out 1318 781 mouthwash 00:00: 15 mL 2 00 (two) times daily. chlorhexidi 2019-03 Yes [id number] 15mL Swish and NPI:183 ne 0.12 % -20 675315 spit out 1318 781 mouthwash 00:00: 15 mL 2 00 (two) times daily. ibuprofen 2019-03 2020- No [id number] 600mg Take 30 mL NPI:183 100 mg/5 mL 04-03- 868474 by mouth 1 [id number] oral 00:00: 05:59 every 6 suspension 00 :00 (six) hours as needed for Pain (scale 1-3) for up to 7 days. acetaminoph 2019-03- No 4647 12.5mL Take 12.5 NPI:183 en-codeine 04-03- mL by [id number] 300 mg-30 00:00: 05:59 mouth mg /12.5 mL 00 :00 every 4 elixir (four) hours as needed for Pain (scale 4-6) or Pain (scale 7-10) for up to 7 days. Indication s: acute pain amoxicillin 2019-03 Yes [id number] 1{tbl} Take 1 NPI:183 -clavulanat 1-12 [id number] tablet by 1 024093 e 00:00: mouth 2 (AUGMENTIN) 00 (two) 875-125 mg times per tablet daily. chlorhexidi 2019-03 Yes [id number] 15mL Swish and NPI:183 ne 0.12 % 1-12 326562 spit out 1318 781 mouthwash 00:00: 15 mL 2 00 (two) times daily. amoxicillin 2019-03 Yes [id number] 1{tbl} Take 1 NPI:183 -clavulanat 1-12 794662 tablet by 1 846563 e 00:00: mouth 2 (AUGMENTIN) 00 (two) 875-125 mg times per tablet daily. chlorhexidi 2019-03 Yes [id number] 15mL Swish and NPI:183 ne 0.12 % 1-12 999203 spit out 1318 781 mouthwash 00:00: 15 mL 2 00 (two) times daily. amoxicillin 2019-03 Yes [id number] 1{tbl} Take 1 NPI:183 -clavulanat 1-12 113470 tablet by 1 665164 e 00:00: mouth 2 (AUGMENTIN) 00 (two) 875-125 mg times per tablet daily. chlorhexidi 2019-03 Yes [id number] 15mL Swish and NPI:183 ne 0.12 % 1-12 195666 spit out 1318 781 mouthwash 00:00: 15 mL 2 00 (two) times daily. amoxicillin 2019-03 Yes [id number] 1{tbl} Take 1 NPI:183 -clavulanat 1-12 071382 tablet by 1 115550 e 00:00: mouth 2 (AUGMENTIN) 00 (two) 875-125 mg times per tablet daily. chlorhexidi 2019-03 Yes [id number] 15mL Swish and NPI:183 ne 0.12 % 1-12 565936 spit out 1318 781 mouthwash 00:00: 15 mL 2 00 (two) times daily. amoxicillin 2019-03 Yes [id number] 1{tbl} Take 1 NPI:183 -clavulanat 1-12 362032 tablet by 1 965572 e 00:00: mouth 2 (AUGMENTIN) 00 (two) 875-125 mg times per tablet daily. chlorhexidi 2019-03 Yes [id number] 15mL Swish and NPI:183 ne 0.12 % 1-12 977610 spit out 1318 781 mouthwash 00:00: 15 mL 2 00 (two) times daily. amoxicillin 2019-03 Yes [id number] 1{tbl} Take 1 NPI:183 -clavulanat 1-12 256880 tablet by 1 012076 e 00:00: mouth 2 (AUGMENTIN) 00 (two) 875-125 mg times per tablet daily. chlorhexidi 2019-03 Yes [id number] 15mL Swish and NPI:183 ne 0.12 % 1-12 106509 spit out 1318 781 mouthwash 00:00: 15 mL 2 00 (two) times daily. amoxicillin 2019-03 Yes [id number] 1{tbl} Take 1 NPI:183 -clavulanat 1-12 060417 tablet by 1 592613 e 00:00: mouth 2 (AUGMENTIN) 00 (two) 875-125 mg times per tablet daily. chlorhexidi 2019-03 Yes [id number] 15mL Swish and NPI:183 ne 0.12 % 03-26 450344 spit out 1318 781 mouthwash 00:00: 15 mL 2 00 (two) times daily. amoxicillin 2019-03- No [id number] 1{tbl} Take 1 NPI:183 -clavulanat 03-26 [id number] tablet by [id number] e 00:00: 00:00 mouth 2 (AUGMENTIN) 00 :00 (two) 875-125 mg times per tablet daily. chlorhexidi 2019-03- No [id number] 15mL Swish and NPI:183 ne 0.12 % 03-26 091205 spit out 131 8781 mouthwash 00:00: 00:00 15 mL 2 00 :00 (two) times daily. amoxicillin 2019-03- No [id number] 1{tbl} Take 1 NPI:183 -clavulanat 03-26 820802 tablet by 4659883 e 00:00: 00:00 mouth 2 (AUGMENTIN) 00 :00 (two) 875-125 mg times per tablet daily. chlorhexidi 2019-03 No [id number] 15mL Swish and NPI:183 ne 0.12 % 03-26 881600 spit out 131 8781 mouthwash 00:00: 00:00 15 mL 2 00 :00 (two) times daily. traMADOL 2017-0 Yes 50mg Take 1 NPI:183 (ULTRAM) 50 2-28 tablet by 131 8781 mg tablet 00:00: mouth 00 every 6 (six) hours as needed for Pain (scale 4-6). Jorge Brasher PA-C / Jose R Casiano MD TILA# [id number] DPS# [id number] x Lic.# [id number] NPI# [id number] traMADOL 2017-0 Yes 50mg Take 1 NPI:183 (ULTRAM) 50 2-28 tablet by 131 8781 mg tablet 00:00: mouth 00 every 6 (six) hours as needed for Pain (scale 4-6). Jorge Brasher PA-C / Jose R Casiano MD TILA# [id number] DPS# [id number] x Lic.# [id number] NPI# [id number] traMADOL 2017-0 Yes 50mg Take 1 NPI:183 (ULTRAM) 50 2-28 tablet by 131 8781 mg tablet 00:00: mouth 00 every 6 (six) hours as needed for Pain (scale 4-6). Jorge Brasher PA-C / Jose R Casiano MD TILA# [id number] DPS# [id number] x Lic.# [id number] NPI# [id number] traMADOL 2017-0 Yes 50mg Take 1 NPI:183 (ULTRAM) 50 2-28 tablet by 131 8781 mg tablet 00:00: mouth 00 every 6 (six) hours as needed for Pain (scale 4-6). Jorge Brasher PA-C / Jose R Casiano MD TILA# [id number] DPS# [id number] x Lic.# [id number] NPI# [id number] traMADOL 2017-0 Yes 50mg Take 1 NPI:183 (ULTRAM) 50 2-28 tablet by 131 8781 mg tablet 00:00: mouth 00 every 6 (six) hours as needed for Pain (scale 4-6). Jorge Brasher PA-C / Jose R Casiano MD TILA# [id number] DPS# [id number] x Lic.# [id number] NPI# [id number] traMADOL 2017-0 Yes 50mg Take 1 NPI:183 (ULTRAM) 50 2-28 tablet by 131 8781 mg tablet 00:00: mouth 00 every 6 (six) hours as needed for Pain (scale 4-6). Jorge Brasher PA-C / Jose R Casiano MD TILA# [id number] DPS# [id number] x Lic.# [id number] NPI# [id number] traMADOL 2017-0 2020- No 50mg Take 1 NPI:18 3 (ULTRAM) 50 2-28 11-12 tablet by 13 18471 mg tablet 00:00: 00:00 mouth 00 :00 every 6 (six) hours as needed for Pain (scale 4-6). Jorge Brasher PA-C / Jose R Casiano MD TILA# [id number] DPS# [id number] x Lic.# [id number] NPI# [id number] traMADOL 2017-0 2020- No 50mg Take 1 NPI:18 3 (ULTRAM) 50 2-28 11-12 tablet by 13 92731 mg tablet 00:00: 00:00 mouth 00 :00 every 6 (six) hours as needed for Pain (scale 4-6). Jorge Brasher PA-C / Jose R Casiano MD TILA# [id number] DPS# [id number] x Lic.# [id number] NPI# [id number] traMADOL 2017-0 2020- No 50mg Take 1 NPI:18 3 (ULTRAM) 50 2-28 11-12 tablet by 13 36543 mg tablet 00:00: 00:00 mouth 00 :00 every 6 (six) hours as needed for Pain (scale 4-6). Jorge Brasher PA-C / Jose R Casiano MD TILA# [id number] DPS# [id number] x Lic.# [id number] NPI# [id number] traMADOL 2017-0 2020- No 50mg Take 1 NPI:18 3 (ULTRAM) 50 2-28 11-12 tablet by 13 16676 mg tablet 00:00: 00:00 mouth 00 :00 every 6 (six) hours as needed for Pain (scale 4-6). Jorge Brasher PA-C / Jose R Casiano MD TILA# [id number] DPS# [id number] x Lic.# [id number] NPI# [id number] ciprofloxac 2016-0 Yes 500mg Take 1 NPI :183 in HCl 9-15 tablet by [id number] (CIPRO) 500 00:00: mouth 2 mg tablet 00 (two) times daily. dicyclomine 2016-0 Yes 20mg Take 1 NPI: 183 (BENTYL) 20 9-15 tablet by 131 8781 mg tablet 00:00: mouth 4 00 (four) times daily. famotidine 2016-0 Yes 20mg Take 1 NPI:1 83 (PEPCID) 20 9-15 tablet by 131 8781 mg tablet 00:00: mouth 2 00 (two) times daily. ciprofloxac 2016-0 Yes 500mg Take 1 NPI :183 in HCl 9-15 tablet by [id number] (CIPRO) 500 00:00: mouth 2 mg tablet 00 (two) times daily. dicyclomine 2016-0 Yes 20mg Take 1 NPI: 183 (BENTYL) 20 9-15 tablet by 131 8781 mg tablet 00:00: mouth 4 00 (four) times daily. famotidine 2016-0 Yes 20mg Take 1 NPI:1 83 (PEPCID) 20 9-15 tablet by 131 8781 mg tablet 00:00: mouth 2 00 (two) times daily. ciprofloxac 2016-0 Yes 500mg Take 1 NPI :183 in HCl 9-15 tablet by [id number] (CIPRO) 500 00:00: mouth 2 mg tablet 00 (two) times daily. dicyclomine 2016-0 Yes 20mg Take 1 NPI: 183 (BENTYL) 20 9-15 tablet by 131 8781 mg tablet 00:00: mouth 4 00 (four) times daily. famotidine 2016-0 Yes 20mg Take 1 NPI:1 83 (PEPCID) 20 9-15 tablet by 131 8781 mg tablet 00:00: mouth 2 00 (two) times daily. ciprofloxac 2016-0 Yes 500mg Take 1 NPI :183 in HCl 9-15 tablet by [id number] (CIPRO) 500 00:00: mouth 2 mg tablet 00 (two) times daily. dicyclomine 2016-0 Yes 20mg Take 1 NPI: 183 (BENTYL) 20 9-15 tablet by 131 8781 mg tablet 00:00: mouth 4 00 (four) times daily. famotidine 2016-0 Yes 20mg Take 1 NPI:1 83 (PEPCID) 20 9-15 tablet by 131 8781 mg tablet 00:00: mouth 2 00 (two) times daily. ciprofloxac 2016-0 Yes 500mg Take 1 NPI :183 in HCl 9-15 tablet by [id number] (CIPRO) 500 00:00: mouth 2 mg tablet 00 (two) times daily. dicyclomine 2016-0 Yes 20mg Take 1 NPI: 183 (BENTYL) 20 9-15 tablet by 131 8781 mg tablet 00:00: mouth 4 00 (four) times daily. famotidine 2016-0 Yes 20mg Take 1 NPI:1 83 (PEPCID) 20 9-15 tablet by 131 8781 mg tablet 00:00: mouth 2 00 (two) times daily. ciprofloxac 2016-0 Yes 500mg Take 1 NPI :183 in HCl 9-15 tablet by [id number] (CIPRO) 500 00:00: mouth 2 mg tablet 00 (two) times daily. dicyclomine 2016-0 Yes 20mg Take 1 NPI: 183 (BENTYL) 20 9-15 tablet by 131 8781 mg tablet 00:00: mouth 4 00 (four) times daily. famotidine 2016-0 Yes 20mg Take 1 NPI:1 83 (PEPCID) 20 9-15 tablet by 131 8781 mg tablet 00:00: mouth 2 00 (two) times daily. ciprofloxac 2016-0 2020- No 500mg Take 1 [employer] I:183 in HCl 9-15 11-12 tablet by [id number] (CIPRO) 500 00:00: 00:00 mouth 2 mg tablet 00 :00 (two) times daily. dicyclomine 2016-0 2020- No 20mg Take 1 NPI :183 (BENTYL) 20 9-15 11-12 tablet by 13 03629 mg tablet 00:00: 00:00 mouth 4 00 :00 (four) times daily. famotidine 2016-0 2020- No 20mg Take 1 NPI: 183 (PEPCID) 20 9-15 11-12 tablet by 13 38913 mg tablet 00:00: 00:00 mouth 2 00 :00 (two) times daily. ciprofloxac 2016-0 2020- No 500mg Take 1 [employer] I:183 in HCl 9-15 11-12 tablet by [id number] (CIPRO) 500 00:00: 00:00 mouth 2 mg tablet 00 :00 (two) times daily. dicyclomine 2016-0 2020- No 20mg Take 1 NPI :183 (BENTYL) 20 9-15 11-12 tablet by 13 83941 mg tablet 00:00: 00:00 mouth 4 00 :00 (four) times daily. famotidine 2016-0 2020- No 20mg Take 1 NPI: 183 (PEPCID) 20 9-15 11-12 tablet by 13 78435 mg tablet 00:00: 00:00 mouth 2 00 :00 (two) times daily. ciprofloxac 2016-0 2020- No 500mg Take 1 [employer] I:183 in HCl 9-15 11-12 tablet by [id number] (CIPRO) 500 00:00: 00:00 mouth 2 mg tablet 00 :00 (two) times daily. dicyclomine 2015- 2020- No 20mg Take 1 NPI :183 (BENTYL) 20 9-15 11-12 tablet by 13 27938 mg tablet 00:00: 00:00 mouth 4 00 :00 (four) times daily. famotidine 2020- No 20mg Take 1 NPI: 183 (PEPCID) 20 9-15 11-12 tablet by 13 57638 mg tablet 00:00: 00:00 mouth 2 00 :00 (two) times daily. ciprofloxac 2015- 2020- No 500mg Take 1 [employer] I:183 in HCl 9-15 11-12 tablet by [id number] (CIPRO) 500 00:00: 00:00 mouth 2 mg tablet 00 :00 (two) times daily. dicyclomine 2020- No 20mg Take 1 NPI :183 (BENTYL) 20 9-15 11-12 tablet by 13 29735 mg tablet 00:00: 00:00 mouth 4 00 :00 (four) times daily. famotidine 2020- No 20mg Take 1 NPI: 183 (PEPCID) 20 15 11-12 tablet by 13 86394 mg tablet 00:00: 00:00 mouth 2 00 :00 (two) times daily. sulfamethox 2015- Yes 1{tbl} Take 1 [employer] I:183 azole-trime 9-13 tablet by 131 8781 thoprim 00:00: mouth (BACTRIM 00 every 12 DS) 800-160 (twelve) mg per hours. tablet naproxen Yes 500mg Take 1 NPI:18 3 (NAPROSYN) 9-13 tablet by 1318 781 500 mg 00:00: mouth 2 tablet 00 (two) times daily with meals. acetaminoph 2016- Yes 1{tbl} Take 1 [employer] I:183 en-codeine 9-13 tablet by 1318 781 (TYLENOL 00:00: mouth #3) 300-30 00 every 4 mg tablet (four) hours as needed for Pain unrelieved by non-narcot ic analgesics . sulfamethox 2015-0 Yes 1{tbl} Take 1 [employer] I:183 azole-trime 9-13 tablet by 131 8781 thoprim 00:00: mouth (BACTRIM 00 every 12 DS) 800-160 (twelve) mg per hours. tablet naproxen 2016-0 Yes 500mg Take 1 NPI:18 3 (NAPROSYN) 9-13 tablet by 1318 781 500 mg 00:00: mouth 2 tablet 00 (two) times daily with meals. acetaminoph 2016-0 Yes 1{tbl} Take 1 [employer] I:183 en-codeine 9-13 tablet by 1318 781 (TYLENOL 00:00: mouth #3) 300-30 00 every 4 mg tablet (four) hours as needed for Pain unrelieved by non-narcot ic analgesics . sulfamethox 2016-0 Yes 1{tbl} Take 1 [employer] I:183 azole-trime 9-13 tablet by 131 8781 thoprim 00:00: mouth (BACTRIM 00 every 12 DS) 800-160 (twelve) mg per hours. tablet naproxen 2016-0 Yes 500mg Take 1 NPI:18 3 (NAPROSYN) 9-13 tablet by 1318 781 500 mg 00:00: mouth 2 tablet 00 (two) times daily with meals. acetaminoph 2016-0 Yes 1{tbl} Take 1 [employer] I:183 en-codeine 9-13 tablet by 1318 781 (TYLENOL 00:00: mouth #3) 300-30 00 every 4 mg tablet (four) hours as needed for Pain unrelieved by non-narcot ic analgesics . sulfamethox 2016-0 Yes 1{tbl} Take 1 [employer] I:183 azole-trime 9-13 tablet by 131 8781 thoprim 00:00: mouth (BACTRIM 00 every 12 DS) 800-160 (twelve) mg per hours. tablet naproxen 2016-0 Yes 500mg Take 1 NPI:18 3 (NAPROSYN) 9-13 tablet by 1318 781 500 mg 00:00: mouth 2 tablet 00 (two) times daily with meals. acetaminoph 2016-0 Yes 1{tbl} Take 1 [employer] I:183 en-codeine 9-13 tablet by 1318 781 (TYLENOL 00:00: mouth #3) 300-30 00 every 4 mg tablet (four) hours as needed for Pain unrelieved by non-narcot ic analgesics . sulfamethox 2016-0 Yes 1{tbl} Take 1 [employer] I:183 azole-trime 9-13 tablet by 131 8781 thoprim 00:00: mouth (BACTRIM 00 every 12 DS) 800-160 (twelve) mg per hours. tablet naproxen 2016-0 Yes 500mg Take 1 NPI:18 3 (NAPROSYN) 9-13 tablet by 1318 781 500 mg 00:00: mouth 2 tablet 00 (two) times daily with meals. acetaminoph 2016-0 Yes 1{tbl} Take 1 [employer] I:183 en-codeine 9-13 tablet by 1318 781 (TYLENOL 00:00: mouth #3) 300-30 00 every 4 mg tablet (four) hours as needed for Pain unrelieved by non-narcot ic analgesics . sulfamethox 2016-0 Yes 1{tbl} Take 1 [employer] I:183 azole-trime 9-13 tablet by 131 8781 thoprim 00:00: mouth (BACTRIM 00 every 12 DS) 800-160 (twelve) mg per hours. tablet naproxen 2016-0 Yes 500mg Take 1 NPI:18 3 (NAPROSYN) 9-13 tablet by 1318 781 500 mg 00:00: mouth 2 tablet 00 (two) times daily with meals. acetaminoph 2016-0 Yes 1{tbl} Take 1 [employer] I:183 en-codeine 9-13 tablet by 1318 781 (TYLENOL 00:00: mouth #3) 300-30 00 every 4 mg tablet (four) hours as needed for Pain unrelieved by non-narcot ic analgesics . sulfamethox 2016-0 2020- No 1{tbl} Take 1 N PI:183 azole-trime 9-13 11-12 tablet [place] [id number] thoprim 00:00: 00:00 mouth (BACTRIM 00 :00 every 12 DS) 800-160 (twelve) mg per hours. tablet naproxen 2016-0 2020- No 500mg Take 1 NPI:1 83 (NAPROSYN) 9-13 11-12 tablet by [id number] 500 mg 00:00: 00:00 mouth 2 tablet 00 :00 (two) times daily with meals. acetaminoph 2016-0 2020- No 1{tbl} Take 1 N [id number] en-codeine 9-13 11-12 tablet by [id number] (TYLENOL 00:00: 00:00 mouth #3) 300-30 00 :00 every 4 mg tablet (four) hours as needed for Pain unrelieved by non-narcot ic analgesics . sulfamethox 2019- No 1{tbl} Take 1 N [id number] azole-trime 11-25 11-12 tablet by [id number] thoprim 00:00: 00:00 mouth (BACTRIM 00 :00 every 12 DS) 800-160 (twelve) mg per hours. tablet naproxen 2020- No 500mg Take 1 NPI:1 83 (NAPROSYN) 11-25 11-12 tablet by [id number] 500 mg 00:00: 00:00 mouth 2 tablet 00 :00 (two) times daily with meals. acetaminoph 2019- No 1{tbl} Take 1 N [id number] en-codeine 11-25-12 tablet by [id number] (TYLENOL 00:00: 00:00 mouth #3) 300-30 00 :00 every 4 mg tablet (four) hours as needed for Pain unrelieved by non-narcot ic analgesics . sulfamethox 2019- No 1{tbl} Take 1 N [id number] azole-trime 11-25-[place] [id number] thoprim 00:00: 00:00 mouth (BACTRIM 00 :00 every 12 DS) 800-160 (twelve) mg per hours. tablet naproxen 2019- No 500mg Take 1 NPI:1 83 (NAPROSYN) 11-25-12 tablet by [id number] 500 mg 00:00: 00:00 mouth 2 tablet 00 :00 (two) times daily with meals. acetaminoph 2019- No 1{tbl} Take 1 N PI:183 en-codeine 11-25 11-12 tablet by 131 [id number] (TYLENOL 00:00: 00:00 mouth #3) 300-30 00 :00 every 4 mg tablet (four) hours as needed for Pain unrelieved by non-narcot ic analgesics . sulfamethox 2019- No 1{tbl} Take 1 N PI:183 azole-trime 11-25 11-12 tablet by [id number] thoprim 00:00: 00:00 mouth (BACTRIM 00 :00 every 12 DS) 800-160 (twelve) mg per hours. tablet naproxen 2019- No 500mg Take 1 NPI:1 83 (NAPROSYN) 11-25 tablet by 131 8781 500 mg 00:00: 00:00 mouth 2 tablet 00 :00 (two) times daily with meals. acetaminoph 2020- No 1{tbl} Take 1 N PI:183 en-codeine 11-25 tablet by 131 8781 (TYLENOL 00:00: 00:00 mouth #3) 300-30 00 :00 every 4 mg tablet (four) hours as needed for Pain unrelieved by non-narcot ic analgesics . 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 simethicone 2015-0 Yes 80mg Take 1 Tab NPI:183 (MYLICON) 2-09 by mouth [id number] 1 80 mg 00:00: after chewable 00 meals and tablet at bedtime. ibuprofen 2015-0 Yes 800mg Take 1 Tab N PI:183 (MOTRIN) 2-09 by mouth [id number] 800 mg 00:00: every 6 tablet 00 (six) hours as needed for Pain (scale 4-6). 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 simethicone 2015-0 Yes 80mg Take 1 Tab NPI:183 (MYLICON) 2-09 by mouth [id number] 1 80 mg 00:00: after chewable 00 meals and tablet at bedtime. ibuprofen 2015-0 Yes 800mg Take 1 Tab N PI:183 (MOTRIN) 2-09 by mouth [id number] 800 mg 00:00: every 6 tablet 00 (six) hours as needed for Pain (scale 4-6). 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 simethicone 2015-0 Yes 80mg Take 1 Tab NPI:183 (MYLICON) 2-09 by mouth [id number] 1 80 mg 00:00: after chewable 00 meals and tablet at bedtime. ibuprofen 2015-0 Yes 800mg Take 1 Tab N PI:183 (MOTRIN) 2-09 by mouth [id number] 800 mg 00:00: every 6 tablet 00 (six) hours as needed for Pain (scale 4-6). 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 simethicone 2015-0 Yes 80mg Take 1 Tab NPI:183 (MYLICON) 2-09 by mouth [id number] 1 80 mg 00:00: after chewable 00 meals and tablet at bedtime. ibuprofen 2015-0 Yes 800mg Take 1 Tab N PI:183 (MOTRIN) 2-09 by mouth [id number] 800 mg 00:00: every 6 tablet 00 (six) hours as needed for Pain (scale 4-6). 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 simethicone 2015-0 Yes 80mg Take 1 Tab NPI:183 (MYLICON) 2- by mouth [id number] 1 80 mg 00:00: after chewable 00 meals and tablet at bedtime. ibuprofen 2015-0 Yes 800mg Take 1 Tab N PI:183 (MOTRIN) 2-09 by mouth [id number] 800 mg 00:00: every 6 tablet 00 (six) hours as needed for Pain (scale 4-6). 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 simethicone 2015-0 Yes 80mg Take 1 Tab NPI:183 (MYLICON) 2-09 by mouth [id number] 1 80 mg 00:00: after chewable 00 meals and tablet at bedtime. ibuprofen 2015-0 Yes 800mg Take 1 Tab N PI:183 (MOTRIN) 2-09 by mouth [id number] 800 mg 00:00: every 6 tablet 00 (six) hours as needed for Pain (scale 4-6). bisacodyl 2014-0 2020- No 5mg Take 1 Tab N PI:183 (DULCOLAX) 04-23 by mouth 1318 781 5 mg EC 00:00: 00:00 once daily tablet 00 :00 as needed for Constipati on. simethicone 2020- No 80mg Take 1 Tab NPI:183 (MYLICON) 04-23 by mouth [id number] 81 80 mg 00:00: 00:00 after chewable 00 :00 meals and tablet at bedtime. ibuprofen 2020- No 800mg Take 1 Tab NPI:183 (MOTRIN) 04-23 by mouth [id number] 1 800 mg 00:00: 00:00 every 6 tablet 00 :00 (six) hours as needed for Pain (scale 4-6). bisacodyl 2014- 2020- No 5mg Take 1 Tab N PI:183 (DULCOLAX) 04-23 by mouth 1318 781 5 mg EC 00:00: 00:00 once daily tablet 00 :00 as needed for Constipati on. simethicone 2020- No 80mg Take 1 Tab NPI:183 (MYLICON) 04-23 by mouth 44095 81 80 mg 00:00: 00:00 after chewable 00 :00 meals and tablet at bedtime. ibuprofen 2020- No 800mg Take 1 Tab NPI:183 (MOTRIN) 04-23 by mouth [id number] 1 800 mg 00:00: 00:00 every 6 tablet 00 :00 (six) hours as needed for Pain (scale 4-6). bisacodyl 2014- 2020- No 5mg Take 1 Tab N PI:183 (DULCOLAX) 04-23 by mouth 1318 781 5 mg EC 00:00: 00:00 once daily tablet 00 :00 as needed for Constipati on. simethicone 2014-0 2020- No 80mg Take 1 Tab NPI:183 (MYLICON) 04-23 by mouth [id number] 81 80 mg 00:00: 00:00 after chewable 00 :00 meals and tablet at bedtime. ibuprofen 2019- No 800mg Take 1 Tab NPI:183 (MOTRIN) 04-23 by mouth [id number] 1 800 mg 00:00: 00:00 every 6 tablet 00 :00 (six) hours as needed for Pain (scale 4-6). bisacodyl 2019- No 5mg Take 1 Tab N PI:183 (DULCOLAX) 04-23 by mouth 1318 781 5 mg EC 00:00: 00:00 once daily tablet 00 :00 as needed for Constipati on. simethicone 2019- No 80mg Take 1 Tab NPI:183 (MYLICON) 04-23 by mouth [id number] 81 80 mg 00:00: 00:00 after chewable 00 :00 meals and tablet at bedtime. ibuprofen 2019- No 800mg Take 1 Tab NPI:183 (MOTRIN) 04-23 by mouth [id number] 1 800 mg 00:00: 00:00 every 6 tablet 00 :00 (six) hours as needed for Pain (scale 4-6). Vital Signs Vital Name Observation Time Observation Value Comments Source Systolic blood pressure 2020-02-27 16:10:00 159 mm[Hg] Diastolic blood 2020-02-27 16:10:00 109 mm[Hg] NPI:1 [id number] pressure Heart rate 2020-02-27 16:10:00 64 /min NPI:1831 509858 Body weight 2020-02-27 16:10:00 67.132 kg NPI:1831 132628 BMI 2020-02-27 16:10:00 26.64 kg/m2 NPI:1831 244900 Systolic blood pressure 2020-02-27 16:10:00 159 mm[Hg] Diastolic blood 2020-02-27 16:10:00 109 mm[Hg] NPI:1 [id number] pressure Heart rate 2020-02-27 16:10:00 64 /min NPI:1831 606883 Body weight 2020-02-27 16:10:00 67.132 kg NPI:1831 229513 BMI 2020-02-27 16:10:00 26.64 kg/m2 NPI:1831 458571 Systolic blood pressure 2020-02-20 19:59:00 144 mm[Hg] Diastolic blood 2020-02-20 19:59:00 102 mm[Hg] NPI:1 [id number] pressure Heart rate 2020-02-20 19:58:00 78 /min NPI:1831 660594 Body weight 2020-02-20 19:58:00 67.132 kg NPI:1831 237573 BMI 2020-02-20 19:58:00 26.64 kg/m2 NPI:1831 194003 Systolic blood pressure 2020-02-13 21:49:00 151 mm[Hg] Diastolic blood 2020-02-13 21:49:00 103 mm[Hg] NPI:1 [id number] pressure Heart rate 2020-02-13 21:49:00 59 /min NPI:1831 620600 Body temperature 2020-02-13 21:49:00 36.61 Betty Respiratory rate 2020-02-13 21:49:00 16 /min Body height 2020-02-13 21:49:00 158.8 cm NPI:1831 [id number] Body weight 2020-02-13 21:49:00 67.45 kg NPI:1831 228138 BMI 2020-02-13 21:49:00 26.76 kg/m2 NPI:1831 616133 Systolic blood pressure 2020-02-02 16:15:00 158 mm[Hg] Diastolic blood 2020-02-02 16:15:00 109 mm[Hg] NPI:1 [id number] pressure Heart rate 2020-02-02 16:15:00 93 /min NPI:1831 877906 Respiratory rate 2020-02-02 16:15:00 18 /min Oxygen saturation in 2020-02-02 16:15:00 94 /min Arterial blood by Pulse oximetry Body temperature 2020-02-02 15:15:00 36.11 Betty Body height 2020-02-02 11:43:00 157.5 cm NPI:183 [id number] Body weight 2020-02-02 11:43:00 69.2 kg NPI:1831 632522 BMI 2020-02-02 11:43:00 27.90 kg/m2 NPI:1831 098259 Systolic blood pressure 2020-01-25 19:02:00 167 mm[Hg] Diastolic blood 2020-01-25 19:02:00 120 mm[Hg] NPI:1 [id number] pressure Heart rate 2020-01-25 19:02:00 68 /min NPI:183 867836 Body temperature 2020-01-25 19:02:00 36.61 Betty Respiratory rate 2020-01-25 19:02:00 16 /min Body height 2020-01-25 19:02:00 157.5 cm NPI:1831 424769 Body weight 2020-01-25 19:02:00 69.264 kg NPI:1831 380361 BMI 2020-01-25 19:02:00 27.93 kg/m2 NPI:1831 201165 Procedures Procedure Date / Time Performed Performing Clinician [facility] DISCLOSURE AND CONSENT, 2020-02-27 06:01:00 Doctor Unassigned, N o MEDICAL AND SURGICAL Name PROCEDURES INTUBATION 2020-02-02 13:38:48 Elba Meek NPI:[id number] CONSENT/REFUSAL FOR 2020-02-02 11:41:44 Doctor Unassigned, No AIRCRAFT INSPECTOR [id number] DIAGNOSIS AND TREATMENT Name ASSIGNMENT OF BENEFITS 2020-02-02 11:41:29 Doctor Unassigned, No Name ASSIGNMENT OF BENEFITS 2020-02-02 11:41:28 Doctor Unassigned, No Name DSU PRE-OP 2020-01-25 06:01:00 Doctor Unassigned, No NPI:18 [id number] Name EXTERNAL PROVIDER 2020-01-23 06:01:00 Doctor Unassigned, No RECORDS Name COVID-19 (PCR MOLECULAR 2019-10-11 16:36:00 Gil Schwartz TESTING) Encounters Start End Encounter Admission Attending Care Care Encounter Source Date/Time Date/Time Type Type Clinicians Facility Department ID 2021-01-11 Yola MARIO [facility] [id number] NPI:183 05:25:32 BRIGIDA [id number] 5077-09-27 2020-12-09 [facility] 1.2.035.202 [id number] NPI:183 00:00:00 00:00:00 Brigida Deb LESELMA 350.1.13.10 [id number] [place] 4.2.7.2.686 [id number] 199 2020-06-12 2020-06-12 Laboratory Lab, [facility] 1.2. 840.114 [id number] NPI:183 14:11:48 14:31:48 Only [facility] 350.1.13.10 [id number] Yulissa 4.2.7.2.686 Professio [id number] nal 044 [facility] One 2020-06-12 2020-06-12 Outpatient [facility] [id number] -20 NPI:183 14:00:00 14:00:00 [id number] 1 2020-06-12 2020-06-12 Outpatient [facility] [id number] NPI:183 14:00:00 14:00:00 MARY [id number] 1 2020-05-24 2020-05-24 Laboratory Lab, [facility] 1.2. 840.114 [id number] NPI:183 14:21:55 14:41:55 Only [facility]res [facility] 350.1.13.10 [id number] [place] 4.2.7.2.686 Professio [id number] [address] One 2020-05-24 2020-05-24 Outpatient [facility] [id number] -[id number] NPI:183 14:00:00 14:00:00 [id number] 1 2020-05-24 2020-05-24 [facility] [id number] NPI:183 14:00:00 14:00:00 CHRISTINA [id number] 1 2020-05-24 2020-05-24 Outpatient [facility] [id number] NPI:183 14:00:00 14:00:00 CHRISTINA [id number] 1 2020-03-13 2020-03-13 [facility] 1.2.840.114 [id number] NPI:183 00:00:00 00:00:00 (Out) Brigida HAHN 350.1.13.10 [id number] [facility] 4.2.7.2.686 [id number] 199 2020-03-13 2020-03-13 [facility] 1.2.840.114 [id number] 00:00:00 00:00:00 (Out) Brigida HAHN 350.1.13.10 [facility] 4.2.7.2.686 [id number] 199 2020-03-12 2020-03-[address]840[address]114 80 [id number] NPI:183 00:00:00 00:00:00 Brigida [facility] 350.1.13.10 [id number] [place] [address].2.7.2.686 [id number] 199 2020-03-12 2020-03-12 [place] [address].2.840.114 [id number] 00:00:00 00:00:00 Brigida [facility] 350.1.13.10 CLINICS 4.2.7.2.686 [id number] 199 2020-02-27 2020-02-27 [address]554.209 [id number] 4296 NPI:183 10:03:54 10:46:44 Visit Brigida IRAHETA 350.1.13.10 [id number] CLINICS 4.2.7.2.686 [id number] 199 2020-02-27 2020-02-27 Office [address]655.571 [id number] 4296 10:03:54 10:46:44 Visit Brigida J [facility] 350.1.13.10 CLINICS 4.2.7.2.686 [id number] 199 2020-02-27 2020-02-27 [facility] [id number] -20 NPI:183 10:00:00 10:00:00 BRIGIDA [id number] 1 2020-02-27 2020-02-27 Out[facility] [id number] NPI:183 10:00:00 10:00:00 BRIGIDA [id number] 1 2020-02-27 2020-02-27 Orders Doctor CRAFT 1.2.840.114 [id number] NPI:183 00:00:00 00:00:00 Only Unassigned, MICHAEL 350.1.13.10 [id number] [facility] 2.7.2.686 [id number] [id number] 2020-02-27 2020-02-27 Orders Doctor CRAFT 1.2.840.114 [id number] 00:00:00 00:00:00 Only Unassigned, MICHAEL 350.1.13.10 [facility] .2.7.2.686 [id number] [id number] 2020-02-23 2020-02-23 Laboratory Only, Adc Test [facility] 1.2.840. 114 [id number] NPI:183 15:48:18 16:03:18 Only Brigida Mario [place] 350.1.13.10 [id number] [place] [address].2.7.2.686 [place] [id number] 2020-02-23 2020-02-23 Outpatient R [facility] [id number] -20 NPI:183 16:00:00 16:00:00 [id number] 2020-02-23 2020-02-23 Outpatient R [facility] [id number] NPI:183 15:30:00 15:30:00 [id number] 1 2020-02-20 2020-02-20 Office NEGRITA Mario 2.564.043 [id number] NPI:183 13:37:40 14:07:40 Visit Brigida Boyd [facility] 350.1.13.10 [id number] [facility] 4.2.7.2.686 [id number] 199 2020-02-20 2020-02-20 Outpatient [facility] [id number] -20 NPI:183 13:30:00 13:30:00 BRIGIDA [id number] 1 2020-02-20 2020-02-20 Outpatient [facility] [id number] NPI:183 13:30:00 13:30:00 BRIGIDA [id number] 1 2020-02-13 2020-02-13 [facility] 1.2.343.197 [id number] NPI:183 15:43:59 16:13:59 Visit Brigida Ricketts [employer] 350.1.13.10 [id number] [facility] 4.2.7.2.686 [id number] 199 2020-02-13 2020-02-13 Outpatient R FABIANO [facility] [id number] NPI:183 15:30:00 15:30:00 BRIGIDA [id number] 1 2020-02-02 2020-02-02 [facility] Felicitas Mario 2.840.114 [id number] NPI:183 05:40:00 10:52:00 Encounter Brigida Deb Rodriguez 350.1.13.[id number]686 [id number] 2020-02-02 2020-02-02 Anesthesia Ana Rosario Felicitas 2.840. 114 [id number] NPI:183 07:17:00 09:14:00 Keyon Jaimes 350.1. 13.[id number]686 [id number] 2020-02-01 2020-02-01 Laboratory Only, [facility] Test [facility] 1.2.84 0.114 [id number] NPI:183 15:43:17 15:58:17 Only Brigida Mario [employer] 350.1.13.10 [id number] [place] [address].2.7.2.686 [id number] 2020-02-01 2020-02-01 Outpatient [facility] [id number] -[id number] NPI:183 15:15:00 15:15:00 [id number] 1 2020-02-01 2020-02-01 Outpatient R FABIANO [facility] [id number] NPI:183 15:15:00 15:15:00 BRIGIDA [id number] 1 2020-01-25 2020-01-25 Office [facility] 12.013.219 [id number] NPI:183 12:54:27 13:24:27 Visit Brigida Boyd [employer] 350.1.13.10 [id number] [place] [address].2.7.2.686 [id number] 2020-01-25 2020-01-25 Outpatient R FABIANO [facility] [id number] -20 NPI:183 13:00:00 13:00:00 BRIGIDA [id number] 1 2020-01-25 2020-01-25 Outpatient R FABIANO [facility] [id number] NPI:183 13:00:00 13:00:00 BRIGIDA [id number] 1 2020-01-25 2020-01-25 Orders Doctor VENANCIO 1.2.840.114 [id number] NPI:183 00:00:00 00:00:00 Only Unassigned, MICHAEL 350.1.13.10 [id number] [facility] 4.2.7.2.686 [id number] 2020-01-23 2020-01-23 Orders Doctor VENANCIO 1.2.840.114 [id number] NPI:183 00:00:00 00:00:00 Only Unassigned, MICHAEL 350.1.13.10 [id number] [facility] 4.2.7.2.686 [id number] [id number] 2019-10-11 2019-10-24 Laboratory Only, Web Test [facility] 1.2.840. 114 [id number] NPI:183 11:30:43 15:15:10 Only Unknown, Attending Health 350.1.13.10 [id number] Specialty 4.2.7.2.686 [facility] [id number] [place] 370 2019-10-12 2019-10-12 Outpatient R [facility] [id number] -[id number] NPI:183 14:15:00 14:15:00 [id number] 2019-10-12 2019-10-12 Outpatient R [facility] [id number] NPI:183 14:15:00 14:15:00 [id number] 1 2019-10-12 2019-10-12 Patient Doctor VENANCIO 1.2.840.114 [id number] NPI:183 00:00:00 00:00:00 Secure Msg Unassigned, MICHAEL 350.1.13.10 [id number] [place] [facility] 4.2.7.2.686 [id number] 2019-10-11 2019-10-11 Outpatient R [facility] [id number] -20 NPI:183 11:15:00 11:15:00 [id number] 2019-10-11 2019-10-11 Outpatient R OVI, [facility] [id number] NPI:183 11:15:00 11:15:00 ATTENDING [id number] 4841-07-27 2019-10-09 Telephone VENANCIO [place] 1.2.271.706 [id number] NPI:183 00:00:00 00:00:00 Elidia RODRIGUEZ 350.1.13.10 [id number] [facility] 4.2.7.2.686 [id number] 2019-09-21 2019-09-21 Outpatient R YOMAIRA, [facility] [id number] NPI:183 14:20:00 14:20:00 MARY [id number] 1 2019-09-21 2019-09-21 Laboratory Lab, Adc Fam Pob I [facility] 1.2. 840.114 [id number] NPI:183 13:49:18 14:09:18 Only Mary Vasquez [facility] 350.1.13.10 [id number] [place] [address].2.7.2.686 [facility] [id number] nal 044 Office Building One Results Test Test Test Results Result Source Description Time Comments Comments BREAST 2021-06- ULTRASOUND 08 BILATERAL 15:36:37 Name: Aura : 1980 Sex: F - DIAG MAMM BILATERAL GUI CAD DIGITAL W/AUGMENTATIONBILATERAL DIGITAL DIAGNOSTIC MAMMOGRAM 3D/2D WITH CAD WITH AUGMENTATION: 2CLINICAL: Breast pain. Digital breast tomosynthesis was performed in addition to routine CC and MLO views. Current mammographic images were evaluated by [employer] ImageChecker CAD (computer-aided detection) software. No prior exams were available for comparison. The tissue of both breasts has scattered fibroglandular background echotexture. Bilateral retropectoral saline implants are intact.No suspicious mass, architectural distortion, malignant type calcification, or lymph node abnormality detected. INCOMPLETE: ADDITIONAL IMAGING EVALUATION NEEDEDThere is no mammographic evidence of malignancy. Bilateral survey ultrasound to follow.- BREAST ULTRASOUND BILATERALULTRASOUND OF BOTH BREASTS: 06/20/2021No prior exams were available for comparison. Color flow and real-time ultrasound of both breasts were performed. Yung scale images of the real-time examination were reviewed. The breast tissue has heterogeneous background echotexture. Bilateral survey ultrasound demonstrates no suspicious sonographic abnormality. No axillary lymphadenopathy was seen.IMPRESSION: BENIGN There is no sonographic evidence of malignancy. ACR appropriate follow-up, recommend annual screening mammogram starting at age 40 per ACR guidelines.Clinical follow up is also recommended, and further management of clinical findings should be based on clinical examination.Nirav Griffiths M.D. ss/:06/20/2021 15:36:37 Entry: - 06/25/2021 10:28:04Imaging Technologist: Farzana ANDRADE, [facility]-FWletter sent: BIRADS 1-2 Combo FU Letter Mammogram BI-RADS: 0 Incomplete: Additional Imaging Evaluation Needed Ultrasound BI-RADS: 2 Benign DIAG MAMM 2021-06- BILATERAL GUI 08 CAD DIGITAL 15:36:37 Name: , Aura W/AUGMENTATION : 1980 Sex: F - DIAG MAMM BILATERAL GUI CAD DIGITAL W/AUGMENTATIONBILATERAL DIGITAL DIAGNOSTIC MAMMOGRAM 3D/2D WITH CAD WITH AUGMENTATION: 06/20/2021LINICAL: Breast pain. Digital breast tomosynthesis was performed in addition to routine CC and MLO views. Current mammographic images were evaluated by [employer] ImageCurbside CAD (computer-aided detection) software. No prior exams were available for comparison. The tissue of both breasts has scattered fibroglandular background echotexture. Bilateral retropectoral saline implants are intact.No suspicious mass, architectural distortion, malignant type calcification, or lymph node abnormality detected. INCOMPLETE: ADDITIONAL IMAGING EVALUATION NEEDEDThere is no mammographic evidence of malignancy. Bilateral survey ultrasound to follow.- BREAST ULTRASOUND BILATERALULTRASOUND OF BOTH BREASTS: 06/20/2021No prior exams were available for comparison. Color flow and real-time ultrasound of both breasts were performed. Yung scale images of the real-time examination were reviewed. The breast tissue has heterogeneous background echotexture. Bilateral survey ultrasound demonstrates no suspicious sonographic abnormality. No axillary lymphadenopathy was seen.IMPRESSION: BENIGN There is no sonographic evidence of malignancy. ACR appropriate follow-up, recommend annual screening mammogram starting at age 40 per ACR guidelines.Clinical follow up is also recommended, and further management of clinical findings should be based on clinical examination.Nirav Griffiths M.D. ss/:06/20/2021 15:36:37 Entry: - 06/25/2021 10:28:04Imaging Technologist: Farzana ANDRADE, [facility]-FWletter sent: BIRADS 1-2 Combo FU Letter Mammogram BI-RADS: 0 Incomplete: Additional Imaging Evaluation Needed Ultrasound BI-RADS: 2 Benign Intubation 2020-01- Elba Meek, DO ? ? NPI:[id number] 20 02/02/2020 ?7:39 8781 13:38:48 AMIntubationDate/Time: 02/02/2020 7:38 AMUrgency: elective Airway not difficult General Information and Staff Patient location during procedure: ORAnesthesiologist: Keyon Jaimes MDResident/ANIMAL ATTENDANT: Elba Meek DOPerformed: resident/ANIMAL ATTENDANT Indications and Patient ConditionIndications for airway management: anesthesia and airway protectionSpontaneous Ventilation: absentSedation level: deepPreoxygenated: yesPatient position: sniffingMask difficulty assessment: 1 - vent by mask Final Airway DetailsFinal airway type: endotracheal airway Successful airway: ETTCuffed: yes Successful intubation technique: direct laryngoscopyFacilitating devices/methods: intubating styletEndotracheal tube insertion site: left narisBlade: MacintoshBlade size: #3ETT size (mm): 7.0Cormack-Lehane Classification: grade I - full view of glottisPlacement verified by: capnometry Number of attempts at approach: 1Ventilation between attempts: noneNumber of other approaches attempted: 0 Additional CommentsAtraumatic, successful DL x 1 COVID-19 (PCR MOLECULAR TESTING) 2019-10-12 07:01:00 Test Item Value Reference Range Interpretation Comme nts SARS-CoV-2 PCR (test code = Not Detected Not Detected 84778-4) ANTON (test code = ANTON) [employer] Aptima SARS-CoV-2 Assay is a nucleic acid amplification test intended for the qualitative detection of RNA from SARS-CoV-2 from nasopharyngeal (AIRCRAFT INSPECTOR) specimens. ?It is used under Emergency Use Authorization (EUA) by FDA. A positive result is indicative of the presence of SARS-CoV-2 RNA. ?Clinical correlation with patient history and other diagnostic information is necessary to determine patient infection status. A negative (Not Detected) result does not preclude SARS-CoV-2 infection. ?Clinical correlation with patient history and other diagnostic information should be used in patient management decisions. Invalid: Unable to generate a valid test result on this specimen. ?Please submit a new specimen for repeat testing if clinically indicated. Lab Interpretation (test code = Normal 48423-2)
[2021-07-22 23:45] LABS: Absolute Lymphocytes (CBC) 1.6 K/uL (0.7-4.9); Hematocrit 40.2 % (36.0-45.0); Lymphocytes % 20.6 % (15.3-44.8); MPV 9.1 fL (7.6-11.3); RBC Red Blood Cell Count 4.22 M/uL (3.86-4.86)
[2021-07-22 23:59] LABS: Albumin 3.5 g/dL (3.4-5.0); Bilirubin Total 0.5 mg/dL (0.2-1.0); Potassium 4.2 mmol/L (3.5-5.1)
[2021-07-23 00:18] LABS: Urine Blood Negative (Negative); Urine Glucose Negative (Negative); Urine Protein Negative (Negative)
[2021-07-23] MEDS ORDERED: MORPHINE 4 MG/ML SYR ONE (00:31)
[2021-07-23] MEDS ORDERED: ONDANSETRON 4 MG/2 ML VIAL ONE (00:31)
--- NOTE | 2021-07-23 01:42 | EDPHYS ---
Physician Documentation [facility] Name: Aura Crawford Age: 40 yrs Sex: Female : 1980 Arrival Date: 07/22/2021 Time: 22:53 Bed 2 Private MD: ED Physician Tang Jerez HPI: 07/22 23:27 This 40 yrs old Female presents to ER via Unassigned with complaints of jr8 Abdominal Pain. 23:27 The patient presents with abdominal pain that is diffuse. Onset: The symptoms/episode jr8 began/occurred gradually, 2 day(s) ago. The symptoms do not radiate. Associated signs and symptoms: none. The symptoms are described as vague. Modifying factors: The symptoms are alleviated by nothing, the symptoms are aggravated by movement, pressure, touching the area. Severity of pain: At its worst the pain was moderate in the emergency department the pain is unchanged. It is unknown whether or not the patient has had similar symptoms in the past. The patient has not recently seen a physician. 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 - Social history:: Smoking status: Patient denies any tobacco usage or history of. ROS: 23:27 Constitutional: Negative for fever, chills, and weight loss, Eyes: Negative for injury, jr8 pain, redness, and discharge, ENT: Negative for injury, pain, and discharge, Neck: Negative for injury, pain, and swelling, Cardiovascular: Negative for chest pain, palpitations, and edema, Respiratory: Negative for shortness of breath, cough, wheezing, and pleuritic chest pain, Back: Negative for injury and pain, MS/Extremity: Negative for injury and deformity, Skin: Negative for injury, rash, and discoloration, Neuro: Negative for headache, weakness, numbness, tingling, and seizure. 23:27 Abdomen/GI: Positive for abdominal pain, Negative for nausea, vomiting, and diarrhea. Exam: 23:27 Constitutional: This is a well developed, well nourished patient who is awake, alert, jr8 and in no acute distress. Cardiovascular: Regular rate and rhythm with a normal S1 and S2. No gallops, murmurs, or rubs. Normal PMI, no JVD. No pulse deficits. Respiratory: Lungs have equal breath sounds bilaterally, clear to auscultation and percussion. No rales, rhonchi or wheezes noted. No increased work of breathing, no retractions or nasal flaring. Back: No spinal tenderness. No costovertebral tenderness. Full range of motion. Skin: Warm, dry with normal turgor. Normal color with no rashes, no lesions, and no evidence of cellulitis. MS/ Extremity: Pulses equal, no cyanosis. Neurovascular intact. Full, normal range of motion. Neuro: Awake and alert, GCS 15, oriented to person, place, time, and situation. Motor strength 5/5 in all extremities. Sensory grossly intact. 23:27 Abdomen/GI: Inspection: scar(s), are noted in the umbilical area, midline suprapubic, Laproscopic insicions present uper quadrants and lower left quadrant, Bowel sounds: active, all quadrants, Palpation: soft, in all quadrants, mild abdominal tenderness, in the right upper quadrant and left upper quadrant, moderate abdominal tenderness, in the left lower quadrant, mass, is not appreciated, rebound tenderness, is not appreciated, voluntary guarding, is not appreciated, involuntary guarding, is not appreciated, no appreciated organomegaly, Indicators: McBurney's point is not tender, Valadez's sign is negative, Rovsing's sign is negative. Vital Signs: 23:45 BP 182 / 139; Pulse 110; Resp 16; Temp 99.2; Pulse Ox 99% ; Weight 71.67 kg; Height 5 al4 ft. 2 in. (157.48 cm); Pain 10/10; 05 00:15 BP 182 / 109; Pulse 70; Resp 16; Pulse Ox 100% on R/A; al4 00:45 BP 177 / 122; Pulse 95; Resp 19 S; Pulse Ox 97% on R/A; al4 01:30 BP 166 / 121; Pulse 93; Resp 13 S; Pulse Ox 100% on R/A; al4 01:50 BP 170 / 123; Pulse 82; Resp 16 S; Pulse Ox 100% on R/A; al4 07/22 23:45 Body Mass Index 28.90 (71.67 kg, 157.48 cm) al4 MDM: 07/22 23:15 Patient medically screened. 07/23 01:39 Differential diagnosis: bowel obstruction, diverticulitis, Endometriosis, non-specific rn abd pain, Ureterolithiasis, urinary tract infection, ovarian cysts. Data reviewed: vital signs, nurses notes, lab test result(s), radiologic studies, CT scan, and as a result, I will discharge patient. Counseling: I had a detailed discussion with the patient and/or guardian regarding: the historical points, exam findings, and any diagnostic results supporting the discharge/admit diagnosis, lab results, radiology results, the need for outpatient follow up, to return to the emergency department if symptoms worsen or persist or if there are any questions or concerns that arise at home. Response to treatment: the patient's symptoms have markedly improved after treatment, and as a result, I will discharge patient. Special discussion: Based on the patient's Hx, exam, and Dx evaluation, there is no indication for emergent surgery or inpatient Tx. It is understood by the patient/guardian that if the Sx's persist or worsen they need to return immediately for re-evaluation. I discussed with the patient/guardian in detail that at this point there is no indication for admission to the hospital. It is understood, however, that if the symptoms persist or worsen the patient needs to return immediately for re-evaluation. Based on the history and exam findings, there is no indication for further emergent testing or inpatient evaluation. I discussed with the patient/guardian the need to see the OB Gyne specialist for further evaluation of the symptoms. ED course: CT shows multiple ovarian cysts, including 11cm cyst suspicious for malignancy, has had this before and had surgery with Dr. Lei and testing was negative at that time for malignancy. Will make appt with Dr. Lei to address this cyst. . 07/22 23:14 Order name: CBC with Diff; Complete Time: 00:07/22 23:14 Order name: CMP; Complete Time: 00:07/22 23:14 Order name: Lipase; Complete Time: :07/23 00:18 Order name: Urine Dipstick-Ancillary; Complete Time: 00:20 [facility] 07/23 01:38 Order name: CREATININE WHOLE BLOOD; Complete Time: 01:51 [facility] 07/23 01:40 Order name: CREATININE WHOLE BLOOD [facility] 07/22 23:14 Order name: IV Saline Lock; Complete Time: 23:46 [facility] 07/22 23:14 Order name: Labs collected and sent; Complete Time: 23:46 [facility] 07/22 23:14 Order name: Urine Dipstick-Ancillary (obtain specimen); Complete Time: 00:33 [facility] 07/22 23:14 Order name: Urine Test (obtain specimen); Complete Time: 00:33 [facility] 07/22 23:26 Order name: CT Abd/Pelvis - IV Contrast Only jr8 Administered Medications: 00:38 Drug: Zofran (Ondansetron) 4 mg Route: IVP; Site: right antecubital; al4 01:14 Follow up: Response: No adverse reaction al4 00:40 Drug: morphine 4 mg Route: IVP; Site: right antecubital; al4 01:14 Follow up: Response: Pain is decreased al4 01:14 Follow up: Response: RASS: Alert and Calm (0) al4 Disposition: 03:51 Co-signature as Attending Physician, Tang Jerez MD. 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
--- NOTE | 2021-07-23 01:42 | ER ---
Nurse's Notes [facility] Name: Aura Crawford Age: 40 yrs Sex: Female : 1980 Arrival Date: 07/22/2021 Time: 22:53 Bed 2 Private MD: Diagnosis: Other ovarian cysts Presentation: 07/22 23:45 Chief complaint: Patient states: Left side abdominal pain x 2 days, patient states she al4 had a similar episode 2 weeks ago before her period. patient also c/o nausea, but currently denies. Coronavirus screen: Vaccine status: Patient reports being unvaccinated. Ebola Screen: No symptoms or risks identified at this time. Initial Sepsis Screen: Does the patient meet any 2 criteria? HR > 90 bpm. No. Patient's initial sepsis screen is negative. Does the patient have a suspected source of infection? No. Patient's initial sepsis screen is negative. Risk Assessment: Do you want to hurt yourself or someone else? Patient reports no desire to harm self or others. Onset of symptoms was July 20, 2021. 23:45 Method Of Arrival: Ambulatory al4 23:45 Acuity: JORDEN 3 al4 Triage Assessment: 23:55 General: Appears uncomfortable, Behavior is calm, cooperative. Pain: Complains of pain al4 in left upper quadrant and left lower quadrant Pain currently is 10 out of 10 on a pain scale. Neuro: Level of Consciousness is awake, alert, obeys commands, Oriented to person, place, time, situation. Cardiovascular: Capillary refill < 3 seconds Patient's skin is warm and dry. Respiratory: Airway is patent Respiratory effort is unlabored, Respiratory pattern is regular. GI: Abdomen is non-distended, Bowel sounds present X 4 quads. Abd is soft X 4 quads Abdomen is tender to palpation in right upper quadrant, left upper quadrant and left lower quadrant Reports Pain is 10 out of 10 on a pain scale. Patient currently denies nausea. : Denies burning with urination, cramping discharge. Musculoskeletal: Circulation, motion, and sensation intact. 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 - Social history:: Smoking status: Patient denies any tobacco usage or history of. Screenin/11 01:52 Abuse screen: Denies threats or abuse. Nutritional screening: No deficits noted. al4 Tuberculosis screening: No symptoms or risk factors identified. Fall Risk None identified. Assessment: 07/22 23:55 Reassessment: see triage assessment. al4 07/23 00:15 Reassessment: provider Jesu aware of BP. al4 00:44 Reassessment: Patient appears in no apparent distress at this time. patient is awake al4 and alert. patient c/o intermittent pain in LLQ, medication administered as ordered. warm blanket given. boyfriend at bedside. 01:13 Reassessment: Patient is alert, oriented x 3, equal unlabored respirations, skin al4 warm/dry/pink. Patient states symptoms have improved. patient states pain has decreased. . 01:33 Reassessment: provider Meri notified of elevated BP. no new orders. al4 01:58 Reassessment: patient awake, alert, oriented. patient educated and updated by provider rajiv and RN on follow up plans and results. patient ambulatory with ride from significant other. Vital Signs: 07/22 23:45 BP 182 / 139; Pulse 110; Resp 16; Temp 99.2; Pulse Ox 99% ; Weight 71.67 kg; Height 5 al4 ft. 2 in. (157.48 cm); Pain 12/22; 07/23 00:15 BP 182 / 109; Pulse 70; Resp 16; Pulse Ox 100% on R/A; al4 00:45 BP 177 / 122; Pulse 95; Resp 19 S; Pulse Ox 97% on R/A; al4 01:30 BP 166 / 121; Pulse 93; Resp 13 S; Pulse Ox 100% on R/A; al4 01:50 BP 170 / 123; Pulse 82; Resp 16 S; Pulse Ox 100% on R/A; al4 07/22 23:45 Body Mass Index 28.90 (71.67 kg, 157.48 cm) al4 ED Course: 07/22 22:53 Patient arrived in ED. bp1 23:06 [facility]. jr8 23:06 Tang Jerez MD is Attending Physician. jr8 23:37 Ethan Villar is Primary Nurse. al4 23:55 Triage completed. al4 23:55 Arm band placed on. al4 23:55 Patient has correct armband on for positive identification. Side rails up X2. al4 05 00:40 CT Abd/Pelvis - IV Contrast Only In Process Unspecified. EDMS 01:41 Cindy Lei MD is Referral Physician. rn 01:53 No provider procedures requiring assistance completed. al4 01:58 IV discontinued, intact, bleeding controlled, No redness/swelling at site. Pressure al4 dressing applied. Administered Medications: 00:38 Drug: Zofran (Ondansetron) 4 mg Route: IVP; Site: right antecubital; al4 01:14 Follow up: Response: No adverse reaction al4 00:40 Drug: morphine 4 mg Route: IVP; Site: right antecubital; al4 01:14 Follow up: Response: Pain is decreased al4 01:14 Follow up: Response: RASS: Alert and Calm (0) al4 Outcome: 01:41 Discharge ordered by MD. rn 01:58 Discharged to home ambulatory, with significant other. al4 01:58 Condition: stable 01:58 Discharge instructions given to patient, significant other, Instructed on discharge instructions, follow up and referral plans. medication usage, Demonstrated understanding of instructions, follow-up care, medications, Prescriptions given X 1. 01:59 Patient left the ED. al4 Signatures: Dispatcher [employer] EDIA Tang Jerez MD MD rn Jesu Prince PA PA jr8 Jenna Saldivar [facility] Ethan Villar al4 Corrections: (The following items were deleted from the chart) 00:51 00:15 Reassessment: provider aware of BP al4 al4 01:52 01:33 Reassessment: provider Meri notified of elevated BP al4 al4 01:54 05 23:55 GI: Abdomen is non-distended, Reports Pain is 10 out of 10 on a pain scale. al4 Patient currently denies nausea, al4
[2021-07-23 02:44] VITALS: TEMP 99.2
[2021-07-23 02:56] VITALS: O2SAT 100
[2021-07-23 02:58] VITALS: BP 170/123
--- NOTE | 2021-07-23 12:21 | RAD REPORT ---
EXAM DESCRIPTION: Abdomen Pelvis W Contrast 07/23/2021 1:05 AM CDT CLINICAL HISTORY: 40 years, Female, Abdominal pain, acute, nonlocalized COMPARISON: TECHNIQUE: Contrast-enhanced images of the abdomen and pelvis were performed utilizing 5 mm slice th ickness at 5 mm interval reconstruction from the lung bases to the ischial tuberosities after the adm inistration of IV contrast. In addition multiplanar reformats in the coronal and sagittal plane were obtained and reviewed. This exam was performed according to our departmental dose-optimization protoc ol, which includes automated exposure control, adjustment of the mA and/or kV according to patient si ze and/or use of iterative reconstruction technique. FINDINGS: The lung bases demonstrate to be clear. The liver, gallbladder, pancreas, spleen and adren al glands demonstrate to be unremarkable, no focal lesions are noted. The kidneys demonstrate normal uptake of contrast media. No evidence for nephrolithiasis and/or hydronephrosis. There are several re nal cysts, largest one within the lower pole measuring 1.1 cm on image 30/97 Grossly the unopacified stomach, small bowel and large bowel demonstrate to be within normal limits. There is no evidence f or bowel dilatation and/or free air. The appendix is normal. The urinary bladder demonstrate to be unremarkable. The uterus demonstrate to be unremarkable. There is a left adnexal cystic structure m easuring 11.6 x 8.4 cm on image 66. There is a right adnexal cystic structure measuring 5 x 4.4 cm on image 64. The aorta demonstrate to be normal. There is no retroperitoneal lymphadenopathy. There is no ascites. The rest of the soft tissue and bony structures are within normal limits. IMPRESSION: Multiple ovarian cysts. Most severe: 11.6 cm left adnexal cyst, concern for low-grade cy stic neoplasm. Gynecology consult recommended and consider MR with IV contrast if clinically warrante d. No evidence for nephrolithiasis and/or hydronephrosis. Electronically signed by: Hilton Gamez MD 07/23/2021 1:09 AM CDT Due to temporary technical issues with the PACS/Fluency reporting system, reports are being signed by the in house radiologist without review as a courtesy to ensure prompt reporting. The interpreting r adiologist is fully responsible for the content of the report.
== END 2021-07-23 01:59 | disposition home or self-care (01) ==
LOC: ER 22:50
DX: N83.299 Other ovarian cyst, unspecified side (principal); Z98.82 Breast implant status
CPT/HCPCS: 36415; 74177; 80053; 81003; 82565; 83690; 85025; J2405; Q9967